=== PATIENT | male | born 1940 | race Caucasian/White ===

== ENCOUNTER 2023-06-18 09:19 | Outpatient (AMB) | payer MEDICARE, SELFPAY ==
--- NOTE | 2023-06-18 09:22 | A.OFFVIS_ITS ---
Vital Signs 06/18/23 09:29 Height 5 ft 11 in Weight 192 lb BMI 26.8 BP 152/88 H Blood Pressure Location Rt brachial Position Sitting Respiration 16 Pulse 81 Pulse Source Pulse Oximeter Pulse Oximetry (%) 99 Oxygen Delivery Method Room Air Intake Visit Reasons: ENP-Muscle Weakness - Confirmed Intake Note: Pt presents to the office for new pt evaluation for muscle weakness. Pt reports lower extremities are weak, right more than the left for the last 3-4 years. He was diagnosed with Parkinson's a year ago. He c/o tremors of upper extremities, altered balance whe changing positions, unsteady gait. 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 Allergies allopurinol Allergy (Mild, Verified 06/18/23 09:35) Rash ampicillin Allergy (Mild, Verified 06/18/23 09:35) Rash cefuroxime Allergy (Mild, Verified 06/18/23 09:35) Rash lisinopril Allergy (Mild, Verified 06/18/23 09:35) Rash valsartan [From Diovan] Allergy (Mild, Verified 06/18/23 09:35) Rash smz/TMP Allergy (Mild, Uncoded 06/18/23 09:35) Rash Medication List - Last Reconciled 06/18/23 by Omayra Lewis MD apixaban (Eliquis) 5 mg PO BID atorvastatin 40 mg PO DAILY calcium carb and citrat-mag ox 200 mg calcium- 50 mg tabs PO carbidopa-levodopa 25-100 mg 1 tab PO TID cholecalciferol (vitamin D3) 25 mcg PO DAILY docosahexaenoic acid-epa 120-180 mg (Fish Oil) 1 cap PO DAILY furosemide 40 mg PO DAILY hydralazine 10 mg PO TID levothyroxine 75 mcg PO DAILY metoprolol succinate ER 25 mg PO DAILY vitamin B complex 1 cap PO DAILY HPI Comments Details: 83y/o right handed male comes for evaluation of possible parkinsons. He started noticing tremors in his right hand about 10 years ago. It was intermittent and was with action. It was diagnosed as essential tremors.He later noticed difficulty with fine motor coordination and slowness in activities. In the past year he reports that his voice is softer , has drooling, handwriting is smaller, trouble using utensils , difficulty with dressing , showering, difficulty changing positions at night,slower gait , unsteady , had falls, poor balance when he changes position . He had 2 episodes of hallucinations - at night mild. He has sleep talking . He is on CPAP for COURTNEY. Cognition- short term memory difficulties and word finding difficulties. No h/o head injury, used round up in the past. Bowel movements are stable . He was seen by Dr. Anderson and was trialed on sinemet with no response. [facility] Medical History (Updated 06/18/23 @ 10:27 by Omayra Lewis MD) Parkinson'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 dyskinesia COURTNEY on CPAP Atrial fibrillation Mantle cell lymphoma Back pain BPH (benign prostatic hyperplasia) HTN (hypertension) Hypothyroidism Parotid tumor Surgical History S/P rotator cuff repair H/O thyroidectomy S/P Mohs surgery for basal cell carcinoma H/O inguinal hernia repair H/O prostate biopsy S/P TURP Social History Household Members: Spouse Caregiver staying overnight: Yes Housing: House Alcohol intake: never Patient Tobacco Use Status: Never used Tobacco Physical Exam Vital Signs: Last Vital Signs Pulse 81 06/18/23 09:29 Resp 16 06/18/23 09:29 BP 152/88 H 06/18/23 09:29 Pulse Ox 99 06/18/23 09:29 Oxygen Delivery Method Room Air 06/18/23 09:29 BMI result Body Mass Index 26.8 Const General: cooperative, healthy appearing and no acute distress Nutritional Appearance: average body habitus Orientation/consciousness: patient oriented x3 HEENT Head: Yes normal to inspection Neck Other: mild antecollis and restricted range of motion Neuro Other: Moderately decreased blink and facial expression - mild asymmetry - decreased movement on the right No tremors Voice-severe hypophonia and dysprosody Fine Finger movements - severely decreased christine R>L Aletranting hand movements - decreased christine Hand movements - decreased christine Foot taps- decreased christine 2+ cog wheel rigidity right UE gait - stooped, moderate slowness and decreased arm swing R>L General: patient oriented x3 and no focal motor deficits Cranial nerves: Yes CN's II-XII intact bilaterally, Yes Bilaterally intact EOM present, Yes Normal facial strength present and Yes Midline tongue present Cognition (Neuro): normal cognition and abnormal cognition (repeats questions frequently) Motor exam (neuro): 5/5 motor strength present throughout Deep tendon reflexes (DTR's): Right triceps reflex intensity grade: 1+, Left triceps reflex intensity grade: 1+, Rt Biceps (C5, C6): 1+, Left biceps reflex intensity grade: 1+, Right brachioradialis reflex intensity grade: 1+, Left brachioradialis reflex intensity grade: 1+, Right patellar reflex intensity grade: 1+ and Left patellar reflex intensity grade: 1+ Coordination: [id number] test normal Assessment & Plan Assessment & Plan (1) Parkinson'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 dyskinesia: Comment: Bradykinesia ,Right cog wheel rigidty hypophonia Code(s): G20.A1 - Parkinson'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 dyskinesia, without mention of fluctuations Category: Medical Plan His symptoms are c/w parkinsons disease - Akinetic rigid type. I will retrial him on carbidopa /levodopa 25/100 1/2 tab tid and titrate to 1 tab tid PT for gait and balance Info on APDA given Side effects discussed in detail MRI brain Will consider ANGELINE scan Orders: Orders PT Evaluation and Treatment Today G20.A1 - Parkinson'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 dyskinesia, without mention of fluctuations MR head/brain wo con Today G20.A1 - Parkinson'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 dyskinesia, without mention of fluctuations Medications: New carbidopa-levodopa 25-100 mg 1 tab PO TID 90 tabs 6RF Coding Level of Care Code New Pt Level 4 (74124) Complex EM visit Add On G2211 Diagnoses Parkinson'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 dyskinesia G20.A1
[2023-06-18 09:29] VITALS: BP 152/88; PULSE 81; RESP 16; O2SAT 99; BMI 26.8
== END 2023-06-18 10:36 | disposition home or self-care (01) ==
PROVIDERS: PCP Family Medicine; Visit Provider Psychiatry & Neurology Neurology
DX: G20.A1 Parkinson'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 dyskinesia, without mention of fluctuations (principal)
CPT/HCPCS: 99204; G2211

== ENCOUNTER → 2023-06-18 09:19 | Outpatient (BNVA) | payer MEDICARE, SELFPAY | PROVIDERS: PCP Family Medicine; Visit Provider Psychiatry & Neurology Neurology | DX: G20.A1 Parkinson'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 dyskinesia, without mention of fluctuations (principal) | CPT/HCPCS: 99202 ==

== ENCOUNTER 2023-07-21 10:02 | Outpatient (REF) | payer MEDICARE, SELFPAY ==
--- NOTE | ~2023-07-21 | MR_ITS ---
EXAMINATION: MR BRAIN WITHOUT CONTRAST CLINICAL INFORMATION: Tremors, off balance. Parkinson'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 dyskinesia. History of mantle cell lymphoma, parotid acinic cell carcinoma. History of stroke approximately 3-5 years prior. COMPARISON: None available. TECHNIQUE: MRI of the brain was obtained using routine sequences without contrast. Standard sequences were utilized on a 1.5 Loli GE magnet. FINDINGS: There is no diffusion restriction. There is no intracranial hemorrhage, acute infarction, mass effect, or edema. No extra-axial collection. Old linear infarct in the posterior right putamen, extending cephalad into the molina radiata with associated gliosis. Ventricles, sulci, and cisterns are diffusely somewhat prominent, reflective of age advanced cerebral and cerebellar volume loss. No shift of midline. Moderate thinning of the corpus callosum. Mild hemosiderin staining noted abutting the old lacunar type infarct right posterior putamen. There are a few punctate foci of hemosiderin deposition/blooming in the bilateral frontal lobes, some within the subarachnoid space and subtle cortically based. This may reflect old microhemorrhages from old trauma, versus old treated tiny metastatic foci. There are numerous bilateral scattered foci of punctate and minimally confluent white matter T2 hyperintensity in the supratentorial periventricular, subcortical, and hemispheric deep white matter. No distribution or morphology specific to demyelinating disease. Midline structures appear normally formed. 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 Cerebellar tonsils are appropriately located. Posterior fossa structures demonstrate an old lacunar type infarct in the right cerebellar hemisphere. Major flow voids are preserved within the skull base. 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 The globes are aphakic. Orbital contents appear normal. No significant paranasal sinus disease is noted. There is fluid signal in the right mastoid air cells, with small amount of involvement of the right middle ear cavity. A small amount of fluid is also noted in the right petrous apex. Extracranial soft tissues demonstrate no abnormalities. No suspicious bone marrow changes are evident. Atlantoaxial demonstrates degenerative changes with mild pannus formation, mildly narrowing the craniocervical junction. MR/MR head/brain wo con IMPRESSION: 1. No acute intracranial hemorrhage, acute infarction, mass effect, or edema. 2. Old vertically oriented infarct in the right posterior putamen extending cephalad into the mid molina radiata. 3. Old lacunar type infarct right cerebellar hemisphere. 4. There are mild to moderate changes of small vessel ischemia. No distribution or morphology specific to demyelinating disease. 5. Moderate prominence of the ventricles, sulci, and cisterns, reflecting mild age advanced cerebral and cerebellar volume loss. 6. Right mastoid effusion, with a small amount of fluid extending into the right middle ear cavity. Fluid within the right petrous apex. 7. Scattered foci of hemosiderin deposition in the bilateral frontal subarachnoid spaces and cortex. This is an unusual distribution for vascular disease, consider prior trauma or prior treated metastases. None are associated with any edema. If there is concern for active metastatic disease, recommend contrast enhanced study. 8. See the body of the report for additional ancillary findings.
== END 2023-07-21 10:03 | disposition home or self-care (01) ==
LOC: HO.MRI 10:02
PROVIDERS: PCP Family Medicine; Visit Provider Psychiatry & Neurology Neurology
DX: G20.A1 Parkinson'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 dyskinesia, without mention of fluctuations (principal)
CPT/HCPCS: 70551

== ENCOUNTER → 2023-07-21 10:07 | Outpatient (BNV) | payer MEDICARE, SELFPAY | PROVIDERS: PCP Family Medicine; Visit Provider Radiology Diagnostic Radiology | DX: G20.A1 Parkinson'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 dyskinesia, without mention of fluctuations (principal) | CPT/HCPCS: 70551 ==

== ENCOUNTER 2023-10-13 12:14 | Outpatient (AMB) | payer MEDICARE, SELFPAY ==
--- NOTE | 2023-10-13 12:19 | MHC.OFFVIS ---
Vital Signs 10/13/23 12:20 Height 5 ft 11 in Weight 187 lb 8 oz BMI 26.1 BP 122/80 Blood Pressure Location Rt brachial Position Sitting Respiration 16 Pulse 76 Pulse Source Palpation Intake Visit Reasons: Muscle Weakness Intake Note: Pt presents tot he office for a 4 month follow up for Parkinsonism. 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 Allergies allopurinol Allergy (Mild, Verified 10/13/23 12:20) Rash ampicillin Allergy (Mild, Verified 10/13/23 12:20) Rash cefuroxime Allergy (Mild, Verified 10/13/23 12:20) Rash lisinopril Allergy (Mild, Verified 10/13/23 12:20) Rash valsartan [From Diovan] Allergy (Mild, Verified 10/13/23 12:20) Rash smz/TMP Allergy (Mild, Uncoded 10/13/23 12:20) Rash Medication List - Last Reconciled 10/13/23 by Omayra Lewis MD apixaban (Eliquis) 5 mg PO BID atorvastatin 40 mg PO DAILY calcium carb and citrat-mag ox 200 mg calcium- 50 mg tabs PO carbidopa-levodopa 25-100 mg 1.5 tabs PO TID cholecalciferol (vitamin D3) 25 mcg PO DAILY docosahexaenoic acid-epa 120-180 mg (Fish Oil) 1 cap PO DAILY furosemide 40 mg PO DAILY hydralazine 10 mg PO TID levothyroxine 75 mcg PO DAILY metoprolol succinate ER 25 mg PO DAILY vitamin B complex 1 cap PO DAILY HPI Comments Details: 83y/o right handed male comes for follow up of parkinsons.he is on sinemet 25/100 tid an dhas noticed a mild difference in his balance.No falls since his last visit.No side effects . Previous history-He started noticing tremors in his right hand about 10 years ago. It was intermittent and was with action. It was diagnosed as essential tremors.He later noticed difficulty with fine motor coordination and slowness in activities. In the past year he reports that his voice is softer , has drooling, handwriting is smaller, trouble using utensils , difficulty with dressing , showering, difficulty changing positions at night,slower gait , unsteady , had falls, poor balance when he changes position . He had 2 episodes of hallucinations - at night mild. He has sleep talking . He is on CPAP for COURTNEY. Cognition- short term memory difficulties and word finding difficulties. No h/o head injury, used round up in the past. Bowel movements are stable . He was seen by Dr. Anderson and was trialed on sinemet with no response. [facility] Medical History (Updated 10/13/23 @ 12:26 by Nikkie Cruz CMA) Malignant melanoma Basal cell carcinoma Parkinson'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 dyskinesia COURTNEY on CPAP Atrial fibrillation Mantle cell lymphoma Back pain BPH (benign prostatic hyperplasia) HTN (hypertension) Hypothyroidism Parotid tumor Surgical History S/P rotator cuff repair H/O thyroidectomy S/P Mohs surgery for basal cell carcinoma H/O inguinal hernia repair H/O prostate biopsy S/P TURP Social History Household Members: Spouse Caregiver staying overnight: Yes Housing: House Alcohol intake: never Patient Tobacco Use Status: Never used Tobacco Physical Exam Vital Signs: Last Vital Signs Pulse 76 10/13/23 12:20 Resp 16 10/13/23 12:20 BP 122/80 10/13/23 12:20 BMI result Body Mass Index 26.1 Const General: cooperative, healthy appearing and no acute distress Nutritional Appearance: average body habitus Orientation/consciousness: patient oriented x3 HEENT Head: Yes normal to inspection Neck Other: mild antecollis and restricted range of motion Neuro Other: Moderately decreased blink and facial expression - mild asymmetry - decreased movement on the right No tremors Voice-mild moderate hypophonia and dysprosody Fine Finger movements -mildly decreased christine R>L Alternating hand movements - decreased christine Hand movements - decreased christine Foot taps- decreased christine 2+ cog wheel rigidity right UE gait - with walker - good stride mild slowness General: patient oriented x3 and no focal motor deficits Cranial nerves: Yes CN's II-XII intact bilaterally, Yes Bilaterally intact EOM present, Yes Normal facial strength present and Yes Midline tongue present Cognition (Neuro): normal cognition and abnormal cognition (repeats questions frequently) Motor exam (neuro): 5/5 motor strength present throughout Coordination: [id number] test normal Results Reviewed Results Reviewed: MRI Brain- 08/02 No acute intracranial hemorrhage, acute infarction, mass effect, or edema. 2. Old vertically oriented infarct in the right posterior putamen extending cephalad into the mid molina radiata. 3. Old lacunar type infarct right cerebellar hemisphere. 4. There are mild to moderate changes of small vessel ischemia. No distribution or morphology specific to demyelinating disease. 5. Moderate prominence of the ventricles, sulci, and cisterns, reflecting mild age advanced cerebral and cerebellar volume loss. 6. Right mastoid effusion, with a small amount of fluid extending into the right middle ear cavity. Fluid within the right petrous apex. 7. Scattered foci of hemosiderin deposition in the bilateral frontal subarachnoid spaces and cortex. This is an unusual distribution for vascular disease, consider prior trauma or prior treated metastases. None are associated with any edema. If there is concern for active metastatic disease, recommend contrast enhanced study. 8. See the body of the report for additional ancillary findings. Assessment & Plan Assessment & Plan (1) Parkinson'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 dyskinesia: Comment: Bradykinesia ,Right cog wheel rigidty hypophonia Code(s): G20.A1 - Parkinson'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 dyskinesia, without mention of fluctuations Category: Medical Plan His symptoms are c/w parkinsons disease - Akinetic rigid type. Increase carbidopa /levodopa 25/100 1 1/2 tab tid PT for gait and balance - starts tomorrow Info on APDA given Side effects discussed in detail MRI brain results discussed -will consider repeat in 1year. Will consider ANGELINE scan Medications: Changed From carbidopa-levodopa 25-100 mg 1 tab PO TID 90 tabs 6RF To carbidopa-levodopa 25-100 mg 1.5 tabs PO TID 450 tabs 6RF Coding Level of Care Code Est Pt Level 4 (96595) Complex EM visit Add On G2211 Diagnoses Parkinson'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 dyskinesia G20.A1
[2023-10-13 12:20] VITALS: BP 122/80; PULSE 76; RESP 16; BMI 26.1
== END 2023-10-13 13:05 | disposition home or self-care (01) ==
PROVIDERS: PCP Family Medicine; Visit Provider Psychiatry & Neurology Neurology
DX: G20.A1 Parkinson'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 dyskinesia, without mention of fluctuations (principal)
CPT/HCPCS: 99214; G2211

== ENCOUNTER → 2023-10-13 12:14 | Outpatient (BNVA) | payer MEDICARE, SELFPAY | PROVIDERS: PCP Family Medicine; Visit Provider Psychiatry & Neurology Neurology | DX: G20.A1 Parkinson'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 dyskinesia, without mention of fluctuations (principal) | CPT/HCPCS: 99212 ==

== ENCOUNTER 2024-04-27 15:16 | Outpatient (AMB) | payer MEDICARE, SELFPAY ==
[2024-04-27 15:19] VITALS: BP 128/88; PULSE 72; O2SAT 99; BMI 26.1
--- NOTE | 2024-04-27 15:19 | A.OFFVIS_ITS ---
Vital Signs 04/27/24 15:19 Height 5 ft 11 in Weight 187 lb BMI 26.1 BP 128/88 Blood Pressure Location Rt brachial Position Sitting Pulse 72 Pulse Source Pulse Oximeter Pulse Oximetry (%) 99 Oxygen Delivery Method Room Air Intake Visit Reasons: Muscle Weakness Intake Note: patient following up on parkinson and COURTNEY compliance report scanned 04/19/24 Allergies allopurinol Allergy (Mild, Verified 04/27/24 15:21) Rash ampicillin Allergy (Mild, Verified 04/27/24 15:21) Rash cefuroxime Allergy (Mild, Verified 04/27/24 15:21) Rash lisinopril Allergy (Mild, Verified 04/27/24 15:21) Rash valsartan [From Diovan] Allergy (Mild, Verified 04/27/24 15:21) Rash smz/TMP Allergy (Mild, Uncoded 04/27/24 15:21) Rash Medication List - Last Reconciled 04/27/24 by Omayra Lewis MD apixaban (Eliquis) 5 mg PO BID atorvastatin 40 mg PO DAILY calcium carb and citrat-mag ox 200 mg calcium- 50 mg tabs PO carbidopa-levodopa 25-100 mg 2 tabs PO TID cholecalciferol (vitamin D3) 25 mcg PO DAILY docosahexaenoic acid-epa 120-180 mg (Fish Oil) 1 cap PO DAILY furosemide 40 mg PO DAILY hydralazine 10 mg PO TID levothyroxine 75 mcg PO DAILY metoprolol succinate ER 25 mg PO DAILY mirabegron ER (Myrbetriq) 50 mg PO DAILY vitamin B complex 1 cap PO DAILY HPI Comments Details: 83y/o right handed male comes for follow up of parkinsons.he is on sinemet 25/100 1 1/2 tid and has noticed a mild difference in his balance.He had 1 fall- 2 mths ago - wet floor .No side effects .He did PT still cabral son and off balance issues especially when turning or changing head positions. Bowel movements-on and off constipation Mybetriq was started by urology He reports one episode of waking up from a nap- confused.He use dto have active dreams - he still talks in sleep but less than before. Previous history-He started noticing tremors in his right hand about 10 years ago. It was intermittent and was with action. It was diagnosed as essential tremors.He later noticed difficulty with fine motor coordination and slowness in activities. In the past year he reports that his voice is softer , has drooling, handwriting is smaller, trouble using utensils , difficulty with dressing , showering, difficulty changing positions at night,slower gait , unsteady , had falls, poor balance when he changes position . He had 2 episodes of hallucinations - at night mild. He has sleep talking . He is on CPAP for COURTNEY. Cognition- short term memory difficulties and word finding difficulties. No h/o head injury, used round up in the past. Bowel movements are stable . He was seen by Dr. Anderson and was trialed on sinemet with no response. [facility] Medical History Malignant melanoma Basal cell carcinoma Parkinson'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 dyskinesia COURTNEY on CPAP Atrial fibrillation Mantle cell lymphoma Back pain BPH (benign prostatic hyperplasia) HTN (hypertension) Hypothyroidism Parotid tumor Surgical History S/P rotator cuff repair H/O thyroidectomy S/P Mohs surgery for basal cell carcinoma H/O inguinal hernia repair H/O prostate biopsy S/P TURP Social History Household Members: Spouse Caregiver staying overnight: Yes Housing: House Alcohol intake: never Patient Tobacco Use Status: Never used Tobacco Physical Exam Vital Signs: Last Vital Signs Pulse 72 04/27/24 15:19 BP 128/88 04/27/24 15:19 Pulse Ox 99 04/27/24 15:19 Oxygen Delivery Method Room Air 04/27/24 15:19 BMI result Body Mass Index 26.1 Const General: cooperative, healthy appearing and no acute distress Nutritional Appearance: average body habitus Orientation/consciousness: patient oriented x3 HEENT Head: Yes normal to inspection Neck Other: mild antecollis and restricted range of motion Neuro Other: Mild decreased blink and facial expression - mild asymmetry - decreased movement on the right No tremors Voice-mild moderate hypophonia and dysprosody Fine Finger movements -mildly decreased christine R>L Alternating hand movements - decreased christine Hand movements - decreased christine Foot taps- decreased christine 1+ cog wheel rigidity right UE gait - good stride mild slowness General: patient oriented x3 and no focal motor deficits Cranial nerves: Yes CN's II-XII intact bilaterally, Yes Bilaterally intact EOM present, Yes Normal facial strength present and Yes Midline tongue present Cognition (Neuro): normal cognition and abnormal cognition (repeats questions frequently) Motor exam (neuro): 5/5 motor strength present throughout Coordination: [id number] test normal Assessment & Plan Assessment & Plan (1) Parkinson'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 dyskinesia: Comment: Bradykinesia ,Right cog wheel rigidty hypophonia Code(s): G20.A1 - Parkinson'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 dyskinesia, without mention of fluctuations Category: Medical Plan Increase carbidopa /levodopa 25/100 2 tab tid PT for gait and balance - continue exercise Info on APDA given Side effects discussed in detail MRI brain results discussed -will consider repeat in 1year. 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
--- OUTSIDE RECORDS SUMMARY | 2024-04-27 17:18 | XMS_ITS | Data Portability ---
Author Organization [facility], [place] Address [address] [place] [id number] Care Team Providers Care Chainer Name Role Phone RUBENS NAILS Primary Care Provider RUBENS NAILS Referring Provider [phone] JE NOVOA OTHER ALYSSA MADDOX Primary Care Provider [facility] OTHER [phone] Assessment Encounter Date Assessment Date Assessment LastModified by Organization Details LastModified Time 01/10/2021 01/10/2021 IMPRESSION: ? C oncern for myelopathy causing feeling of weakness standing from sitting position ? D rooling, lightheadedness episodes upon standing up or while standing. ? T iredness context atrial fibrillation and sleep apnea. 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 --Heterogeneous marrow signal in thoracic spine with multiple hemangiomas as well as multiple small T1 and T2 hypointense foci of indeterminate nature. This may reflect intermixed red and yellow marrow, but marrow replacing process is not excluded. Clinical correlation with any history of malignancy and consideration of bone scan if clinically indicated is recommended. --1.7 cm left adrenal nodule and correlation with prior imaging or follow-up adrenal CT. Cervical spine MRI without contrast December 11, 2020 per dictation [facility] neuroradiology Dr. Kera Burton: The cervical cord is normal. There is no significant central or lateral neuroforaminal stenosis. There is at most mild central canal stenosis (C4-5) There is at most mild lateralizing foraminal stenosis (C3-4 left; C4-5 left; C6-7 left; C7-T1 left) Cervical myelopathy is not seen as potential etiology for weakness standing from sitting. .................. .................. ........ Myelopathy is not found as explanation for his presenting symptoms of weakness standing from a sitting position in the context of upper motor neuron signs including right-sided knee spastic catch, right sided crossed adductors and extensor Babinski response. .................. .................. ...... BONE MARROW ABNORMALITY We discussed that radiology cannot exclude a marrow replacement process. 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 I say that I cannot say whether the abnormality seen on MRI is consistent with this picture or whether it heightens the chance that he has come out of remission. I would want hematology/oncolog y to weigh in. He agrees to contact them as well as contacting primary care. I will make sure my note gets to hematology oncology. .................. .................. ..... PARKINSONISM I doubt a brain related acute abnormality. If the right knee abnormal tone is not spasticity but paratonia or subtle rigidity, this could be an atypical parkinsonian issue as Babinski response and heightened reflexes are consistent with (but nonspecific) with parkinsonism. He has also had drooling. To review, other mild parkinsonian signs that have emerged November 2020 versus January 2020 have included Finger tapping that is moderately small with mild dysrhythmic character. His gait is a little slower. These signs and symptoms reflect parkinsonism but not Parkinson's disease in particular. Medications exist for Parkinson's disease. These medications works suboptimally if at all for parkinsonism that is not from Parkinson's disease. We discussed this. He is noncommittal about considering any such medications. I suggest that we hold off on thinking about this until the issue with his bone marrow abnormality is sufficiently addressed. Both he and his agree with this. .................. .................. ....... Tiredness is nonspecific. It may occur with parkinsonism. There is no specific treatment when it occurs with parkinsonism. They mentioned that sleep medicine say that the CPAP is working well and they have no other ideas about why he is tired. I did not discuss whether cardiology felt there was any cardiac issue that might be causing tiredness. I defer to primary care or cardiology on this. Note is again made of bilateral reduction of vibration sensation to tuning fork at big toes and ankles. I continue to defer to primary care for any monitoring of B12 deficiency. PLAN Marilu Yin January 10, 2021 Followup as needed as detailed above? i n particular if you wish to concentrate on further addressing parkinsonism, although likely not Parkinson's disease, that might relate to many of your symptoms discussed in November 2020 ANNA Adkins Hamatology/Oncolog y mrossen Not available 01/10/2021 15:34:29 01/07/2022 01/07/2022 IMPRESSION: --Slowly worsening gait imbalance, now with stumbling although not falling -- Continued lightheadedness episodes, starting with standing up or walking, including one with diagnosis of dehydration at emergency room in summer 2021 --Patient report of rectal cold] stroke seen on head CT during presentation summer 2021 with significant lightheadedness and diagnosis of dehydration COntext 2020 presentation: ? C oncern for myelopathy causing feeling of weakness standing from sitting position ? D rooling, lightheadedness episodes upon standing up or while standing. 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 T iredness context atrial fibrillation and sleep apnea. --Benign essential familial tremor explaining right hand action tremor --MRI thoracic and cervical spine without contrast, both December 2020, without any concerning cord or central compressive abnormality and with at most mild lateral foraminal stenosis GAIT IMBALANCE Currently physical therapy is indicated. They are on board and I will make the referral. OLD STROKE He should be on secondary stroke prophylaxis. Anticoagulation currently with Eliquis is ideal. There should also be high intensity statin. Atorvastatin or simvastatin 40 mg is the standard direction to go. If there is any concern on cognitive side effects, high intensity rosuvastatin could be used instead.I defer to primary care on this direction and discussed with patient to follow-up with primary care to discuss this further. .................. .................. ..... PARKINSONISM This could be an atypical parkinsonian issue as Babinski response and heightened reflexes are consistent with (but nonspecific) with parkinsonism. He has also had drooling. To review, other mild parkinsonian signs that have emerged November 2020 versus January 2020 have included Finger tapping that is moderately small with mild dysrhythmic character. His gait is a little slower. These signs and symptoms reflect parkinsonism but not Parkinson's disease in particular. January 2021 discussion: Medications exist for Parkinson's disease. These medications works suboptimally if at all for parkinsonism that is not from Parkinson's disease. We discussed this. He is noncommittal about considering any such medications. I suggest that we hold off on thinking about this until the issue with his bone marrow abnormality is sufficiently addressed. Both he and his agree with this. Note is again made of bilateral reduction of vibration sensation to tuning fork at big toes and ankles. I continue to defer to primary care for any monitoring of B12 deficiency. PLAN Marilu CerdaLyndsay Yin January 07, 2022 Physical therapy for Slowly worsening imbalance, now with stumbling although no falling, separate from lightheadedness that also affects balance, mild nonspecific parkinsonism, with hip flexor weakness A referral has been sent to this physical therapy office. However, you have to make an initial phone call, to the number below, to set up the initial appointment. [facility] [address], [place] Follow-up with your primary care provider at your earliest convenience to discuss starting a high intensity statin medication? which is standard of care if you have ever had a stroke before, even a silent stroke, which is what you have apparently had seen on imaging this summer at [facility] emergency room. Follow-up 3 months ANNA Adkins Hamatology/Oncolog y zafar Not available 01/07/2022 12:59:17 04/03/2022 04/03/2022 IMPRESSION: --Slowly worsening gait imbalance, now with stumbling although not falling -- Continued lightheadedness episodes, starting with standing up or walking, including one with diagnosis of dehydration at emergency room in summer 2021 --Patient report of rectal cold] stroke seen on head CT during presentation summer 2021 with significant lightheadedness and diagnosis of dehydration context 2020 presentation: ? C oncern for myelopathy causing feeling of weakness standing from sitting position ? D rooling, lightheadedness episodes upon standing up or while standing. 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 T iredness context atrial fibrillation and sleep apnea. 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 OLD STROKE He should be on secondary stroke prophylaxis. Anticoagulation currently with Eliquis is ideal. There should also be high intensity statin. Atorvastatin or simvastatin 40 mg is the standard direction to go. If there is any concern on cognitive side effects, high intensity rosuvastatin could be used instead.I defer to primary care on this direction and discussed with patient to follow-up with primary care to discuss this further. Today the patient mentions that he has started the statin, atorvastatin 40 mg daily. .................. .................. ..... PARKINSONISM This could be an atypical parkinsonian issue as Babinski response and heightened reflexes are consistent with (but nonspecific) with parkinsonism. He has also had drooling. To review, other mild parkinsonian signs that have emerged November 2020 versus January 2020 have included Finger tapping that is moderately small with mild dysrhythmic character. His gait is a little slower. These signs and symptoms reflect parkinsonism but not Parkinson's disease in particular. January 2021 discussion: Medications exist for Parkinson's disease. These medications works suboptimally if at all for parkinsonism that is not from Parkinson's disease. We discussed this. He is noncommittal about considering any such medications. I suggest that we hold off on thinking about this until the issue with his bone marrow abnormality is sufficiently addressed. Both he and his agree with this. December 2021: Note is again made of bilateral reduction of vibration sensation to tuning fork at big toes and ankles. I continue to defer to primary care for any monitoring of B12 deficiency. PLAN Marilu Yin April 03, 2022 CONTINUE Physical therapy for Slowly worsening imbalance, now with stumbling although no falling, separate from lightheadedness that also affects balance, mild nonspecific parkinsonism, with hip flexor weakness They are agreeable with Follow-up as needed ANNA Adkins Hematology/Oncolog y mrossen Not available 04/03/2022 11:04:22 10/29/2022 10/29/2022 IMPRESSION: --Slowly worsening gait imbalance, now with stumbling although not falling -- Continued lightheadedness episodes, starting with standing up or walking, including one with diagnosis of dehydration at emergency room in summer 2021 --Patient report of old stroke seen on head CT during presentation summer 2021 with significant lightheadedness and diagnosis of dehydration context 2020 presentation: ? C oncern for myelopathy causing feeling of weakness standing from sitting position ? D rooling, lightheadedness episodes upon standing up or while standing. 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 T iredness context atrial fibrillation and sleep apnea. --Benign essential familial tremor explaining right hand action tremor --MRI thoracic and cervical spine without contrast, both December 2020, without any concerning cord or central compressive abnormality and with at most mild lateral foraminal stenosis GAIT IMBALANCE I ask if he is ready to move toward a cane and he is. He has worked well with his physical therapist and has been doing the home exercises since stopping physical therapy. He already has a cane. He is happy to go back to that physical therapist and work on training using a cane. His would also like them to work on him getting up from the floor and I say this is right in the wheel house of a physical therapist. 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 I ask if he has changed his mind about driving carbidopa/levodopa , which is less likely to help for him then for someone with Parkinson's disease. He has changed his mind and he would like to try a dose, cautiously. We discussed possible side effects and decided on a cautious titration as detailed below. I will ask his to learn the medications in his medication organizer and to monitor medication administration from now on as medication mistakes can be a sign of worsening memory and we do not want that to be a situation for our patient. This is especially true when we are changing to a new medication regimen. .................. .................. ..... PARKINSONISM This could be an atypical parkinsonian issue as Babinski response and heightened reflexes are consistent with (but nonspecific) with parkinsonism. He has also had drooling. To review, other mild parkinsonian signs that have emerged November 2020 versus January 2020 have included Finger tapping that is moderately small with mild dysrhythmic character. His gait is a little slower. These signs and symptoms reflect parkinsonism but not Parkinson's disease in particular. January 2021 discussion: Medications exist for Parkinson's disease. These medications works suboptimally if at all for parkinsonism that is not from Parkinson's disease. We discussed this. He is noncommittal about considering any such medications. I suggest that we hold off on thinking about this until the issue with his bone marrow abnormality is sufficiently addressed. Both he and his agree with this. December 2021: Note is again made of bilateral reduction of vibration sensation to tuning fork at big toes and ankles. I continue to defer to primary care for any monitoring of B12 deficiency. PLAN Marilu Yin October 29, 2022 Carbidopa/levodopa 25/100 tablets: 1/2 tablet every morning after breakfast, 1 week, 1 tablet every morning after breakfast after Side effects might include abdominal discomfort, diarrhea, worsened dizziness and rarely hallucination or confusion. Please return to physical therapy for more training with using a cane and for help with learning how to get up from the floor. worsening imbalance, now with first fall 09/2022. There has been history of hip flexor weakness. 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 C oncern for myelopathy causing feeling of weakness standing from sitting position ? D rooling, lightheadedness episodes upon standing up or while standing. 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 T iredness context atrial fibrillation and sleep apnea. --Benign essential familial tremor explaining right hand action tremor --MRI thoracic and cervical spine without contrast, both December 2020, without any concerning cord or central compressive abnormality and with at most mild lateral foraminal stenosis ? J anuary 2023 three more falls; none yet while using the new walker. GAIT IMBALANCE Dyscoordination maneuvering a walker may be part of his parkinsonism. I asked his son, who is at the physical therapy session and knows the recommendation for using the walker in tight spaces, to work with his father today on using the walker at home in a tight space. They can report to physical therapy how that went. If the patient cannot do it, the other options are wheelchair or grab bars. I would get Occupational Therapy to assess for grab bars. The patient says that he is not opposed to a walker if that is what is left. They will discuss this to with physical therapy if the patient is not able to maneuver in the tight spaces? a nd the problem is not that the walker is to be so that a smaller walker would help. He Is not interested in further increase in the carbidopa levodopa after we again discussed that with his type of Parkinson's symptomatology, the chances of benefit are not that high. We will stop the carbidopa/levodopa . The son wonders if he can go up (as I described to and then 2 tablets in the morning) if the patient changes his mind after he gets home. I say that is certainly possible as long as they give me/our front office to call to say this new decision has happened. FORGTFULLNESS Both patient and his son say (February 24, 2022) that he and the patient's take medicines together at each medication administration, morning and evening and the watches to make sure that her is doing it correctly. .................. .................. ..... PARKINSONISM This could be an atypical parkinsonian issue as Babinski response and heightened reflexes are consistent with (but nonspecific) with parkinsonism. He has also had drooling. To review, other mild parkinsonian signs that have emerged November 2020 versus January 2020 have included Finger tapping that is moderately small with mild dysrhythmic character. His gait is a little slower. These signs and symptoms reflect parkinsonism but not Parkinson's disease in particular. January 2021 discussion: Medications exist for Parkinson's disease. These medications works suboptimally if at all for parkinsonism that is not from Parkinson's disease. We discussed this. He is noncommittal about considering any such medications. I suggest that we hold off on thinking about this until the issue with his bone marrow abnormality is sufficiently addressed. Both he and his agree with this. December 2021: Note is again made of bilateral reduction of vibration sensation to tuning fork at big toes and ankles. I continue to defer to primary care for any monitoring of B12 deficiency. PLAN Marilu Yin February 24, 2023 STOP Carbidopa/levodopa 25/100 tablets: 1 tablet every morning after breakfast Please continue with physical therapy for gait imbalance Follow-up 6 weeks ANNA Adkins Hematology/Oncolog y zafar Not available 02/24/2023 13:19:25 Plan of Treatment Reminders Order Date Submit Date Provider Last Modified By Organization Details Last Modified Time Details Appointments None recorded. Lab None recorded. Referral neurologic physical therapist referral - Slowly worsening imbalance, now with stumbling although no falling, separate from lightheaded ness that also affects balance, mild nonspecific parkinsonis m, with hip flexor weakness 2021 022 trino 1 [facility], [address] [place] [address], [place], [id number], 3 15:32:50 Procedures None recorded. Surgeries None recorded. Imaging None recorded. Medication Orders carbidopa 25 mg-levodopa 100 mg tablet 2022 023 [id number], [address] [place], [id number], 13:25:02 Patient TargetsNo targets recorded. Patient Instructions Encounter Date Encounter Id Patient Instructions Last Modified By Organization Details Last Modified Time 01/07/2022 [id number] PREVIOUS DISCUSSIONS _ ................... ................... ..... January 10, 2021 discussion: Tiredness is nonspecific. It may occur with parkinsonism. There is no specific treatment when it occurs with parkinsonism. They mentioned that sleep medicine say that the CPAP is working well and they have no other ideas about why he is tired. I did not discuss whether cardiology felt there was any cardiac issue that might be causing tiredness. I defer to primary care or cardiology on this. ................... ................... ...... Cervical myelopathy is not seen as potential etiology for weakness standing from sitting. Myelopathy is not found as explanation for his presenting symptoms of weakness standing from a sitting position in the context of upper motor neuron signs including right-sided knee spastic catch, right sided crossed adductors and extensor Babinski response. ................... ................... .... BONE MARROW ABNORMALITY We discussed that radiology cannot exclude a marrow replacement process. 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 I say that I cannot say whether the abnormality seen on MRI is consistent with this picture or whether it heightens the chance that he has come out of remission. I would want hematology/oncology to weigh in. He agrees to contact them as well as contacting primary care. I will make sure my note gets to hematology oncology. Discussion across issues of diagnoses and management and same day associated chart review and management greater than 50% greater than 40 minutes [email or web address] Not available 01/07/2022 12:58:31 04/03/2022 [id number] PREVIOUS DISCUSSIONS _ ................... ................... ..... January 10, 2021 discussion: Tiredness is nonspecific. It may occur with parkinsonism. There is no specific treatment when it occurs with parkinsonism. They mentioned that sleep medicine say that the CPAP is working well and they have no other ideas about why he is tired. I did not discuss whether cardiology felt there was any cardiac issue that might be causing tiredness. I defer to primary care or cardiology on this. ................... ................... ...... Cervical myelopathy is not seen as potential etiology for weakness standing from sitting. Myelopathy is not found as explanation for his presenting symptoms of weakness standing from a sitting position in the context of upper motor neuron signs including right-sided knee spastic catch, right sided crossed adductors and extensor Babinski response. ................... ................... .... BONE MARROW ABNORMALITY We discussed that radiology cannot exclude a marrow replacement process. 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 I say that I cannot say whether the abnormality seen on MRI is consistent with this picture or whether it heightens the chance that he has come out of remission. I would want hematology/oncology to weigh in. He agrees to contact them as well as contacting primary care. I will make sure my note gets to hematology oncology. Discussion across issues of diagnoses and management and same day associated chart review and management greater than 50% greater than 30 minutes mrossen Not available 04/03/2022 11:04:26 10/29/2022 [id number] PREVIOUS DISCUSSIONS _ >>>>>>>April 03, 2022 OLD STROKE He should be on secondary stroke prophylaxis. Anticoagulation currently with Eliquis is ideal. There should also be high intensity statin. Atorvastatin or simvastatin 40 mg is the standard direction to go. If there is any concern on cognitive side effects, high intensity rosuvastatin could be used instead.I defer to primary care on this direction and discussed with patient to follow-up with primary care to discuss this further. Today the patient mentions that he has started the statin, atorvastatin 40 mg daily. ................... ................... ..... January 10, 2021 discussion: Tiredness is nonspecific. It may occur with parkinsonism. There is no specific treatment when it occurs with parkinsonism. They mentioned that sleep medicine say that the CPAP is working well and they have no other ideas about why he is tired. I did not discuss whether cardiology felt there was any cardiac issue that might be causing tiredness. I defer to primary care or cardiology on this. ................... ................... ...... Cervical myelopathy is not seen as potential etiology for weakness standing from sitting. Myelopathy is not found as explanation for his presenting symptoms of weakness standing from a sitting position in the context of upper motor neuron signs including right-sided knee spastic catch, right sided crossed adductors and extensor Babinski response. ................... ................... .... BONE MARROW ABNORMALITY We discussed that radiology cannot exclude a marrow replacement process. 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 I say that I cannot say whether the abnormality seen on MRI is consistent with this picture or whether it heightens the chance that he has come out of remission. I would want hematology/oncology to weigh in. He agrees to contact them as well as contacting primary care. I will make sure my note gets to hematology oncology. Discussion across issues of diagnoses and management and same day associated chart review and management greater than 50% greater than 40 minutes zafar Not available 10/29/2022 13:23:43 02/24/2023 [id number] PREVIOUS DISCUSSIONS _ >>>>>>>April 03, 2022 OLD STROKE He should be on secondary stroke prophylaxis. Anticoagulation currently with Eliquis is ideal. There should also be high intensity statin. Atorvastatin or simvastatin 40 mg is the standard direction to go. If there is any concern on cognitive side effects, high intensity rosuvastatin could be used instead.I defer to primary care on this direction and discussed with patient to follow-up with primary care to discuss this further. Today the patient mentions that he has started the statin, atorvastatin 40 mg daily. ................... ................... ..... January 10, 2021 discussion: Tiredness is nonspecific. It may occur with parkinsonism. There is no specific treatment when it occurs with parkinsonism. They mentioned that sleep medicine say that the CPAP is working well and they have no other ideas about why he is tired. I did not discuss whether cardiology felt there was any cardiac issue that might be causing tiredness. I defer to primary care or cardiology on this. ................... ................... ...... Cervical myelopathy is not seen as potential etiology for weakness standing from sitting. Myelopathy is not found as explanation for his presenting symptoms of weakness standing from a sitting position in the context of upper motor neuron signs including right-sided knee spastic catch, right sided crossed adductors and extensor Babinski response. ................... ................... .... BONE MARROW ABNORMALITY We discussed that radiology cannot exclude a marrow replacement process. 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 I say that I cannot say whether the abnormality seen on MRI is consistent with this picture or whether it heightens the chance that he has come out of remission. I would want hematology/oncology to weigh in. He agrees to contact them as well as contacting primary care. I will make sure my note gets to hematology oncology. Discussion across issues of diagnoses and management and same day associated chart review and management greater than 50% greater than 40 minutes sarahin Not available 02/24/2023 12:34:05 Reason for Referral Slowly worsening imbalance, now with stumbling although no falling, separate from lightheadedness that also affects balance, mild nonspecific parkinsonism, with hip flexor weakness Referring Physician: Robert Anderson, Neurology, Encounter Date: 01/07/2022 Results Created Date Observation Date Name Description Value Unit Range Abnormal Flag Note LastModifiedBy Organization Detail LastModifiedTime 12/12/19 21 12/11/2020 MRI, cervi stephenie spine , w/o contr ast [facility] Access ion Number : [id number] Patidat susanne Name: Caridad Yin Record Number : [id number] Date of : 1940 Date of Exam: 2020 Referr ing Physic braxton: Marbella Anderson MD Neurol [facility] [address] [address] Exam: MR Cervic al Spine (C-) CPT 58680 Room Descri ption: [place] Siem Verio 3.0T INDICA TION: Concer n for myelop athy for weakne ss in standi ng from sittin g positi on, right- sided knee spasti c catch, or right- sided crosse d adduct ors and extens or Babins ki respon se. Neck pain. TECHNI QUE: Multip lanar, multis equenc e MRI of the cervic al spine was perfor med withou t intrav enous contra st. COMPAR ZEESHAN: None FINDIN GS: Grade 1 anselmo listhe sis of C4 on C5 is noted. Alignm ent is otherw ise preser eflego. Verteb ral body height s are mainta ined. Interv ertebr al discs are diffus daniel desicc ated. There is partia l fusion across the severe ly narrow ed C5-6 disc space. There is also severe loss of disc space at C7-T1 and modera te loss of disc space at C6-7. Scatte red degene rative endpla te change s are noted, most promin ently Modic 2 change s at C7-T1. T1 and T2 hyperi ntense focus in the T3 verteb ral body is compat ible with a arnaud ioma. There is also a ranaud ioma versus focal fatty change in the right aspect of the C6 verteb ral body. No suspic ious marrow signal abnorm ality is seen. The visual ized [employer] teller ior fossa and cervic omedul hal juncti on are normal . Cord signal and contou r is normal throug hout. An oval node measur ing 7 mm in short axis is seen credit [employer] teller ior and latera l to the right thyroi d lobe, not meetin g size criter ia for enlarg ement. The visual ized soft tissue s of the neck are otherw ise unrema rkable . Flow voids are preser elfego in the domina nt cervic al vessel s. Specif ic findin gs by level: C2-C3: No signif icant disc hernia tion, centra l stenos is, or neural forami nal narrow ing. C3-C4: Small centra l protru carolee and mild bilate ral facet hypert rophy, greate r on the left. No signif icant centra l stenos is or right neural forami nal narrow ing. Mild left neural forami nal narrow ing. C4-C5: Mild broad- based disc bulge with small centra l protru carolee along with left greate r than right facet hypert rophy and mild uncove rtebra l spurri ng. Mild centra l stenos is. Mild left and no right neural forami nal narrow ing. C5-C6: Mild broad- based disc osteop hyte comple x and uncove rtebra l spurri ng. No signif icant centra l stenos is or left neural forami nal narrow ing. Minima l right neural forami nal narrow ing. C6-C7: Mild broad- based credit union teller ior disc osteop hyte comple x and bilate ral uncove rtebra l spurri ng. No signif icant centra l stenos is. Mild right and no signif icant left neural forami nal narrow ing. Bilate ral perine ural cysts. C7-T1: Mild broad- based disc osteop hyte comple x with left greate r than right uncove rtebra l spurri ng. No signif icant centra l stenos is or right neural forami nal narrow ing. Mild left neural forami nal narrow ing. IMPRES CAROLEE: Mild degene rative change s of the cervic al spine as detail ed above. No centra l stenos is, cord compre ssion, or cord signal abnorm ality. Electr onical ly Signed By: Willow Burton MD [email or web address] [facility] ([facility]) [address] [facility] [address], [place], [address], 12/20/2020 13:13:21 01/08/20 21 01/06/2021 MRI, thora cic spine , w/o contr ast [facility] Access ion Number : [id number] Novadat skinner Name: Caridad Yin Record Number : [id number] Date of : 1940 Date of Exam: 2020 Referr ing Physic braxton: Marbella Anderson MD Neurol [facility] [address] [address] Exam: MR Thorac ic Spine (C-) CPT 75742 Room Descri ption: [place] Siem Verio 3.0T INDICA TION: Interv ertebr al disc disord er of the thorac ic region with myelop athy. Weakne ss and standi ng from the sittin g positi on, right- sided knee spasti c catch, right- sided crosse d abduct ors and extens or Babins ki respon se. No back pain. TECHNI QUE: Multip lanar, multis equenc e MRI of the thorac ic spine was perfor med withou t intrav enous contra st. COMPAR ZEESHAN: No direct compar zeeshan. Correl ation to MRI cervic al spine 021. FINDIN GS: Verteb ral body height s are preser elfego. Alignm ent is mainta ined. Marrow signal is diffus daniel hetero geneou s. Multil evel degene rative endpla te signal change s are noted, includ ing Modic 2 change s at C7-T1 and Modic 1 change s most promin ent at T6-7 and T7-8. Severa l rounde d T1 and T2 hyperi ntense foci are seen in the marrow , compat ible with benign arnaud iomas, includ ing at T3, T5, T6, T8, and T10. Backgr ound marrow signal is diffus daniel hetero geneou s with small scatte red T1 and T2 hypoin tense foci cardio logy. No corres pondin g STIR hyperi ntense signal and no destru ctive lesion . Interv ertebr al discs are diffus daniel desicc ated and mildly narrow ed. Multil evel tiny credit union teller ior disc bulges are presen t, includ ing at C7-T1, T1-T2, T2-T3, T10-T1 1, and T12-L1 , but there is no signif icant centra l stenos is or neural forami nal narrow ing at any level in the thorac ic spine. Cord signal and contou r is normal throug hout. Partia lly visual ized T2 hyperi ntense lesion in the right kidney measur ing 1.5 cm is statis ticall y likely to reflec t a cyst. A left adrena l nodule measur ing approx imatel y 1.7 x 1.3 cm is indete rminat e. Remain ing visual ized parasp inal soft tissue s are unrema rkable . IMPRES CAROLEE: 1. No cord compre ssion or cord signal abnorm ality in the thorac ic spine to explai n the patien t's sympto ms. 2. Hetero geneou s marrow signal in thorac ic spine, with multip le arnaud iomas as well as multip le small T1 and T2 hypoin tense foci which are indete rminat e. This may reflec t interm ixed red and yellow marrow , but marrow replac ing proces s is not exclud ed; correl ate with any clinic al histor y of malign emanuel and consid er bone scan if clinic ally indica víctor. 3. 1.7 cm left adrena l nodule . Sugges t correl ation with any prior imagin g if availa ble. Otherw ise, recomm end follow -up adrena l CT for charac teriza tion. Electr onical ly Signed By: Willow Burton MD [facility] ([facility]) [address] [place], [address], 01/08/2021 21:51:05 Result Notes None recorded. Procedures Surgical History Date Name Laterality Status Provider Name and Address Organization Details Recorded Time 02/24/2023 DATA REVIEW completed Robert Anderson MD [address] [place] [address] [place], [phone], Formerly [facility] 02/24/2023 12:34:05 10/29/2022 DATA REVIEW completed Robert Anderson MD [address] [place] [address] [place], [phone], Formerly [facility] 10/29/2022 12:47:31 04/03/2022 DATA REVIEW completed Robert Anderson MD [address] [place] [address] [place], [phone], Formerly [facility] 04/03/2022 10:41:52 01/07/2022 DATA REVIEW completed Robert Anderson MD [address] [place] [address] [place], [phone], Formerly [facility] 01/07/2022 12:14:14 Imaging Results Imaging Date Name Status LastModified by Organiz ation Details LastModified Time 12/11/2020 MRI, cervical spine, w/o contrast completed [email or web address] [facility] ([facility]) [address] [place], [address], 12/20/2020 13:13:21 01/06/2021 MRI, thoracic spine, w/o contrast completed [facility] ([facility]) [address] [place], [address], 01/08/2021 21:51:05 Procedure Notes None recorded. Medical Equipment None Reported. Medications Name Sig Start Date Stop Date Status Note LastModified by Organization Details LastModified Time atorvastatin 40 mg tablet active Not Available Not Available Not Available amiodarone 200 mg tablet TAKE 1 TABLET BY MOUTH ONCE DAILY active Not Available Not Available No t Available levothyroxine 75 mcg tablet active Not Available Not Availabl e Not Available ketorolac 0.5 % eye drops INSTILL 1 DROP INTO RIGHT EYE THREE TIMES DAILY FOR 3 WEEKS FOLLOWING SURGERY active Not Available Not Available No t Available levothyroxine 100 mcg tablet active Not Available Not Available Not Available levothyroxine 88 mcg tablet active Not Available Not Availabl e Not Available amlodipine 10 mg tablet active Not Available Not Available No t Available levothyroxine 125 mcg tablet active Not Available Not Available Not Available metoprolol succinate ER 25 mg tablet,extend ed release 24 hr TAKE 1 TABLET BY MOUTH ONCE DAILY FOR 30 DAYS active Not Available Not Available No t Available carbidopa 25 mg-levodopa 100 mg tablet TAKE 1/2 (ONE-HALF) TABLET BY MOUTH IN THE MORNING AFTER BREAKFAST FOR 1 WEEK THEN 1 TABLET IN THE MORNING AFTER BREAKFAST AFTER active Not Available Not Available No t Available atenolol 50 mg tablet active Not Available Not Available No t Available Eliquis 5 mg tablet active Not Available Not Available Not Available Vitals None Recorded Social History None recorded. Functional Status None recorded. Mental Status None recorded. Family History Nothing Reported. Medical History No medical history recorded. Past Encounters Encounter ID Performer Location Encounter Start Date Encounter Closed Date Diagnosis/Indication Diagnosis SNOMED-CT Code Diagnosis ICD10 Code Diagnosis Note [id number] Robert Anderson MD [facility] [address] [place] [address] [place] [address] 12/05/2020 09:05:19 12/05/2020 10:09:27 Intervertebral disc disorder of cervical region with myelopathy 68158857 M50.03 Abnormal gait 96569638 R 26.81 Essential tremor 9736849 09 G25.0 [id number] Robert Anderson MD [facility] [address] [place] [address] [place] [address] 12/18/2020 10:38:59 12/18/2020 11:30:29 Abnormal gait 79062758 R26.81 Essential tremor 7408045 09 G25.0 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 77679585 M51.04 [id number] Robert Anderson MD [facility] [address] [place] [address] [place] [address] 01/10/2021 14:24:17 01/14/2021 09:10:39 Abnormal gait 10031081 R26.81 Essential tremor 0281533 09 G25.0 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 08077908 M51.04 [id number] Robert Anderson MD [facility] [address] [place] [address] [place] [address] 01/07/2022 11:37:21 01/07/2022 14:25:26 Abnormal gait 87454427 R26.81 Essential tremor 9205621 09 G25.0 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 14345818 M51.04 [id number] Robert Anderson MD [facility] [address] [place] [address] [place] [address] 04/03/2022 10:27:45 04/03/2022 11:19:57 Abnormal gait 39751151 R26.81 Essential tremor 5097436 09 G25.0 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 26270130 M51.04 [id number] Robert Anderson MD [facility] [address] [place] [address] [place] [address] 10/29/2022 12:15:02 10/29/2022 17:01:26 Abnormal gait 60315811 R26.81 Essential tremor 0039095 09 G25.0 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 89278745 M51.04 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 [id number] Robert Anderson MD [facility] [address] [place] [address] [place] [address] 02/24/2023 12:28:21 02/24/2023 17:11:50 Abnormal gait 78953128 R26.81 Essential tremor 3721348 09 G25.0 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 24998765 M51.04 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 5642046 G21.4 Multiple s ystem atrophy 403746827 G90.3 Health Concerns Section Related Observation LastModified by Organization Detai ls LastModified Time None Recorded Concern Status LastModified by Organization Details LastModified Time None Recorded Advance Directives Directive None Recorded Payers Encounter Date Sequence Insurance Name Policy Number Policy Nieto Covered Member ID Nieto Member ID Guarantor Name 01/10/2021 1 [place] Caridad Yin [id number] 2 Caridad Yin 01/10/2021 2 [place] [id number] Caridad Yin [id number] Caridad Yin 01/07/2022 1 [place] Caridad Yin [id number] 2 Caridad Yin 01/07/2022 2 [place] [id number] Caridad Yin [id number] Caridad Yin 04/03/2022 1 [place] Caridad Yin [id number] 2 Caridad Yin 04/03/2022 2 [place] [id number] Caridad Yin [id number] Caridad Yin 10/29/2022 1 [place] Caridad Yin [id number] 2 Caridad Yin 10/29/2022 2 [place] [id number] Caridad Yin [id number] Caridad Yin 02/24/2023 1 [place] [facility] G[facility]ERNMENT SERVICES Caridad Yin [id number] 2 Caridad Yin 02/24/2023 2 [place] [id number] Caridad Yin [id number] Caridad Yin Notes Date Note Type Note Provider Name and Address Organization Details Recorded Time 01/10/2021 text/html He presents for neurology reconsultation for muscle weakness in face hips and legs. He also reports tiredness and lightheaded dizziness. 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 Past history includes sleep apnea and heart arrhythmia, both diagnosed ~2019. He is accompanied by his who helps with the history. He is right-handed. Since December 18, 2020, his walking is about 20% better with walking, and muscle weakness in hips and legs with difficulty standing from sitting position. Just before that appointment he started a month of physical therapy for strengthening, agility and balance. Physical therapy has since been completed and he feels that has contributed to his walking improvement. Nevertheless, his just walk with him this morning and feels that he is 50% slower than he used to be and he shuffling. He did not report any change in his initial 2019 concern of right hand tremor which I had diagnosed as essential tremor. He does not report any falls. He does not report any change in intermittent lightheadedness with standing, tiredness or drooling. Interim history from December 05, 2020 neurology reconsultation is reviewed:However, he is concerned about other issues: He has had muscle weakness in his face for about 1.5 years. By this he means he has had drooling when he sits in his chair. It has worsened. He has no other weakness in his face, no problems with chewing swallowing or talking. He has had weakness in his hips and legs for about 6 months. There has been progressive worsening. He currently is unable to stand from kneeling. He is in physical therapy trying to work on this.He has had lightheaded dizziness episodes while walking for about 4 months. And event lasts about a minute or less and may cause stumbling but he has not fallen. He pauses during an event and when it passes he continues on. He has had tiredness for about 1.5 years, since around the time he had sleep apnea and heart arrhythmia diagnosed. Currently, his notices that he can hardly stay awake and usually falls asleep if he just sits down. He has chronic neck pain. He has no mid back pain but he has some low back pain.. 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 This has slowly worsened. It started to bother his handwriting significantly a few months ago, earlier in 2019. Around the same time, he also began having trouble eating with his right hand, especially eating soup. The tremor does not embarrass him. He has not noticed any emerging right hand tremor when his right hand is at rest. He has not noticed a tremor in his left hand or any other part of his body. He has no problems walking. Later during the exam he says that he sometimes notices imbalance. He has not fallen or stumbled. His last fall was on the final step going down stairs over a year ago. He has an occasional single twitch right before he goes to sleep, otherwise he has no movements or restlessness during and before he goes to sleep. His has told him that he has occasionally talked or called out his sleep in recent years. He has not fallen out of bed. He has no recent unusual depression or anxiety, just situational depression about the constraints from the coronavirus pandemic epidemic. His sense of smell has been diminishing for a number of years, now he can only smell a few aromas. His sense of color vision is okay. He has no unexplained constipation. He has no particular problem with memory. Robert Anderson MD [address] [place] [address], [phone], Formerly [facility] 01/10/2021 15:35:11 01/07/2022 text/html He presents for neurology reconsultation for muscle weakness in face hips and legs. He also reports tiredness and lightheaded dizziness. 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 Past history includes sleep apnea and heart arrhythmia, both diagnosed ~2019. He is accompanied by his who helps with the history. He is right-handed. Since January 10, 2021 neurology follow-up encounter, just under 1 year ago, he has continued to have dizziness and he has had worsening imbalance. Dizziness was at its worst 1 day this past summer 2021 when he had onset of bad dizziness in the middle of a walk and had trouble making it home where he finally sat down. He was still dizzy and went to the emergency room where they diagnosed dehydration, gave him IV fluids and discharged him. 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 His noted that his gait was better after the IV fluids. He has imbalance when he walks even when he is not dizzy. Dizziness fluctuates and on days when he is more dizziness than others he sometimes decides not to take walks because of the dizziness. He has bladder incontinence and wears a diaper context prostate disease. He has no bowel dyscontrol. Interim history from January 10, 2021 neurology follow-upSince December 18, 2020, his walking is about 20% better with walking, and muscle weakness in hips and legs with difficulty standing from sitting position. Just before that appointment he started a month of physical therapy for strengthening, agility and balance. Physical therapy has since been completed and he feels that has contributed to his walking improvement. Nevertheless, his just walk with him this morning and feels that he is 50% slower than he used to be and he shuffling. He did not report any change in his initial 2019 concern of right hand tremor which I had diagnosed as essential tremor. He does not report any falls. He does not report any change in intermittent lightheadedness with standing, tiredness or drooling. Interim history from December 05, 2020 neurology reconsultation is reviewed:However, he is concerned about other issues: He has had muscle weakness in his face for about 1.5 years. By this he means he has had drooling when he sits in his chair. It has worsened. He has no other weakness in his face, no problems with chewing swallowing or talking. He has had weakness in his hips and legs for about 6 months. There has been progressive worsening. He currently is unable to stand from kneeling. He is in physical therapy trying to work on this.He has had lightheaded dizziness episodes while walking for about 4 months. And event lasts about a minute or less and may cause stumbling but he has not fallen. He pauses during an event and when it passes he continues on. He has had tiredness for about 1.5 years, since around the time he had sleep apnea and heart arrhythmia diagnosed. Currently, his notices that he can hardly stay awake and usually falls asleep if he just sits down. He has chronic neck pain. He has no mid back pain but he has some low back pain.. 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 This has slowly worsened. It started to bother his handwriting significantly a few months ago, earlier in 2019. Around the same time, he also began having trouble eating with his right hand, especially eating soup. The tremor does not embarrass him. He has not noticed any emerging right hand tremor when his right hand is at rest. He has not noticed a tremor in his left hand or any other part of his body. He has no problems walking. Later during the exam he says that he sometimes notices imbalance. He has not fallen or stumbled. His last fall was on the final step going down stairs over a year ago. He has an occasional single twitch right before he goes to sleep, otherwise he has no movements or restlessness during and before he goes to sleep. His has told him that he has occasionally talked or called out his sleep in recent years. He has not fallen out of bed. He has no recent unusual depression or anxiety, just situational depression about the constraints from the coronavirus pandemic epidemic. His sense of smell has been diminishing for a number of years, now he can only smell a few aromas. His sense of color vision is okay. He has no unexplained constipation. He has no particular problem with memory. Robert Anderson MD [address] [place] [address], [phone], Formerly [facility] 01/07/2022 12:59:45 04/03/2022 text/html Neuology follow up for muscle weakness in face hips and legs. He also reports tiredness and lightheaded dizziness. 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 Past history includes sleep apnea and heart arrhythmia, both diagnosed ~2019. He is accompanied by his who helps with the history. He is right-handed. Since January 07, 2022 neurology follow-up encounter, he has started and is continuing physical therapy with Meli Vazquez at [facility]. It has helped a little with his imbalance. He is stumbling less the stumbles are more mild, on the small side. They still happen multiple times per day. mentions they tend to happen if he tripped on something, a rug on particular. She then herself volunteers that a practical solution would be to take up the rugs that are not the [id number] part of the carpeting and there home. He continues episodic dizziness although less than previously seen this still occurs two or three times per day, typically after he has already stood up and when he is standing or walking. His episodes also contribute to his stumbling. Often the dizziness will happen if he turns too fast. Physical therapy is working with him on turning fast and keeping his balance. I asked him to ask physical therapy to additionally work on turning more slowly with awareness.He does not feel in danger of falling with the stumbling. He does not believe that a cane would help and physical therapy has not brought it up.I ask him to talk to primary care and cardiology about the dizziness as it might relate medications, blood pressure medications in particular that he is. There may be a different optimal point of blood pressure control decided upon by primary care or cardiology when they understand that he is currently getting dizzy/lightheaded and this is making him stumble. 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 He is agreeable with contacting those providers to focus on this situation. >>>>>>>>>>>>>>>>>>>>> >>>>>Interim history from January 07, 2022 neurology follow-upSince January 10, 2021 neurology follow-up encounter, just under 1 year ago, he has continued to have dizziness and he has had worsening imbalance. Dizziness was at its worst 1 day this past summer 2021 when he had onset of bad dizziness in the middle of a walk and had trouble making it home where he finally sat down. He was still dizzy and went to the emergency room where they diagnosed dehydration, gave him IV fluids and discharged him. 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 His noted that his gait was better after the IV fluids. He has imbalance when he walks even when he is not dizzy. Dizziness fluctuates and on days when he is more dizziness than others he sometimes decides not to take walks because of the dizziness. He has bladder incontinence and wears a diaper context prostate disease. He has no bowel dyscontrol. >>>>>>>>>>>>>>>>>>>>> >>>>>Interim history from January 10, 2021 neurology follow-upSince December 18, 2020, his walking is about 20% better with walking, and muscle weakness in hips and legs with difficulty standing from sitting position. Just before that appointment he started a month of physical therapy for strengthening, agility and balance. Physical therapy has since been completed and he feels that has contributed to his walking improvement. Nevertheless, his just walk with him this morning and feels that he is 50% slower than he used to be and he shuffling. He did not report any change in his initial 2019 concern of right hand tremor which I had diagnosed as essential tremor. He does not report any falls. He does not report any change in intermittent lightheadedness with standing, tiredness or drooling. >>>>>>>>>>>>>>>>>>>>> >>>>>>>Interim history from December 05, 2020 neurology reconsultation is reviewed:He is concerned about other issues: He has had muscle weakness in his face for about 1.5 years. By this he means he has had drooling when he sits in his chair. It has worsened. He has no other weakness in his face, no problems with chewing swallowing or talking. He has had weakness in his hips and legs for about 6 months. There has been progressive worsening. He currently is unable to stand from kneeling. He is in physical therapy trying to work on this.He has had lightheaded dizziness episodes while walking for about 4 months. And event lasts about a minute or less and may cause stumbling but he has not fallen. He pauses during an event and when it passes he continues on. He has had tiredness for about 1.5 years, since around the time he had sleep apnea and heart arrhythmia diagnosed. Currently, his notices that he can hardly stay awake and usually falls asleep if he just sits down. He has chronic neck pain. He has no mid back pain but he has some low back pain..>>>>>>>>>>>>>>> >>>>>>>>>>>>>>>>>>>>> >>>>>>>>>>>>>>>>>>>>> >>>>>>>>>>>>>>>>>Pres enting symptomatology relating to right-handed tremor is reviewed from initial neurology consultation January 23, 2020: He retired from his profession of dentistry in 2003. Several months after that he began noticing a tremor in his right hand with activities. This has slowly worsened. It started to bother his handwriting significantly a few months ago, earlier in 2019. Around the same time, he also began having trouble eating with his right hand, especially eating soup. The tremor does not embarrass him. He has not noticed any emerging right hand tremor when his right hand is at rest. He has not noticed a tremor in his left hand or any other part of his body. He has no problems walking. Later during the exam he says that he sometimes notices imbalance. He has not fallen or stumbled. His last fall was on the final step going down stairs over a year ago. He has an occasional single twitch right before he goes to sleep, otherwise he has no movements or restlessness during and before he goes to sleep. His has told him that he has occasionally talked or called out his sleep in recent years. He has not fallen out of bed. He has no recent unusual depression or anxiety, just situational depression about the constraints from the coronavirus pandemic epidemic. His sense of smell has been diminishing for a number of years, now he can only smell a few aromas. His sense of color vision is okay. He has no unexplained constipation. He has no particular problem with memory. Robert Anderson MD [address] [place] [address], [phone], Former[facility] 04/03/2022 11:05:35 10/29/2022 text/html Neuology follow up for muscle weakness in face hips and legs. He also reports tiredness and lightheaded dizziness. 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 Past history includes sleep apnea and heart arrhythmia, both diagnosed ~2018. He is accompanied by his who helps with the history. He is right-handed. >>>>>>>>>>>>>>>>>>>>> >>>>>October 29, 2022Since April 03, 2022 neurology follow-up encounter, he has had some worsening of his gait imbalance, he feels it all the time and more prominently. Dizziness has become more frequent, still with occurrences centered around standing up or walking.He has had a fall, his first in recent years, around the end of September 2022 at their vacation home or just after getting back. Dizziness was not involved. He did not hurt himself. He has stopped his exercise walks in the morning since early October, in large part because he has increased hesitance about the possibility of a fall since that fall.Otherwise, he knows of no symptoms or situations of concern new over the last 6-7 months. His memory is a little worse, a little more forgetful. He remains incontinent of bladder? t his has been for several years. There is no worsening of bowel control. She has no problems dressing himself except it is harder to bend over to put on his shoes. He has no problems turning in bed. He has no problems with coordination of his upper extremities.I did not ask about mood? I will ask at follow-up. >>>>>>>>>>>>>>>>>>>>> >>>>>April 03, 2022Since January 07, 2022 neurology follow-up encounter, he has started and is continuing physical therapy with Meli Vazquez at [facility]. It has helped a little with his imbalance. He is stumbling less the stumbles are more mild, on the small side. They still happen multiple times per day. mentions they tend to happen if he tripped on something, a rug on particular. She then herself volunteers that a practical solution would be to take up the rugs that are not the [id number] part of the carpeting and there home. He continues episodic dizziness although less than previously seen this still occurs two or three times per day, typically after he has already stood up and when he is standing or walking. His episodes also contribute to his stumbling. Often the dizziness will happen if he turns too fast. Physical therapy is working with him on turning fast and keeping his balance. I asked him to ask physical therapy to additionally work on turning more slowly with awareness.He does not feel in danger of falling with the stumbling. He does not believe that a cane would help and physical therapy has not brought it up.I ask him to talk to primary care and cardiology about the dizziness as it might relate medications, blood pressure medications in particular that he is. There may be a different optimal point of blood pressure control decided upon by primary care or cardiology when they understand that he is currently getting dizzy/lightheaded and this is making him stumble. 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 He is agreeable with contacting those providers to focus on this situation. >>>>>>>>>>>>>>>>>>>>> >>>>>Interim history from January 07, 2022 neurology follow-upSince January 10, 2021 neurology follow-up encounter, just under 1 year ago, he has continued to have dizziness and he has had worsening imbalance. Dizziness was at its worst 1 day this past summer 2021 when he had onset of bad dizziness in the middle of a walk and had trouble making it home where he finally sat down. He was still dizzy and went to the emergency room where they diagnosed dehydration, gave him IV fluids and discharged him. 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 His noted that his gait was better after the IV fluids. He has imbalance when he walks even when he is not dizzy. Dizziness fluctuates and on days when he is more dizziness than others he sometimes decides not to take walks because of the dizziness. He has bladder incontinence and wears a diaper context prostate disease. He has no bowel dyscontrol. >>>>>>>>>>>>>>>>>>>>> >>>>>Interim history from January 10, 2021 neurology follow-upSince December 18, 2020, his walking is about 20% better with walking, and muscle weakness in hips and legs with difficulty standing from sitting position. Just before that appointment he started a month of physical therapy for strengthening, agility and balance. Physical therapy has since been completed and he feels that has contributed to his walking improvement. Nevertheless, his just walk with him this morning and feels that he is 50% slower than he used to be and he shuffling. He did not report any change in his initial 2019 concern of right hand tremor which I had diagnosed as essential tremor. He does not report any falls. He does not report any change in intermittent lightheadedness with standing, tiredness or drooling. >>>>>>>>>>>>>>>>>>>>> >>>>>>>Interim history from December 05, 2020 neurology reconsultation is reviewed:He is concerned about other issues: He has had muscle weakness in his face for about 1.5 years. By this he means he has had drooling when he sits in his chair. It has worsened. He has no other weakness in his face, no problems with chewing swallowing or talking. He has had weakness in his hips and legs for about 6 months. There has been progressive worsening. He currently is unable to stand from kneeling. He is in physical therapy trying to work on this.He has had lightheaded dizziness episodes while walking for about 4 months. And event lasts about a minute or less and may cause stumbling but he has not fallen. He pauses during an event and when it passes he continues on. He has had tiredness for about 1.5 years, since around the time he had sleep apnea and heart arrhythmia diagnosed. Currently, his notices that he can hardly stay awake and usually falls asleep if he just sits down. He has chronic neck pain. He has no mid back pain but he has some low back pain..>>>>>>>>>>>>>>> >>>>>>>>>>>>>>>>>>>>> >>>>>>>>>>>>>>>>>>>>> >>>>>>>>>>>>>>>>>Pres enting symptomatology relating to right-handed tremor is reviewed from initial neurology consultation January 23, 2020: He retired from his profession of dentistry in 2003. Several months after that he began noticing a tremor in his right hand with activities. This has slowly worsened. It started to bother his handwriting significantly a few months ago, earlier in 2019. Around the same time, he also began having trouble eating with his right hand, especially eating soup. The tremor does not embarrass him. He has not noticed any emerging right hand tremor when his right hand is at rest. He has not noticed a tremor in his left hand or any other part of his body. He has no problems walking. Later during the exam he says that he sometimes notices imbalance. He has not fallen or stumbled. His last fall was on the final step going down stairs over a year ago. He has an occasional single twitch right before he goes to sleep, otherwise he has no movements or restlessness during and before he goes to sleep. His has told him that he has occasionally talked or called out his sleep in recent years. He has not fallen out of bed. He has no recent unusual depression or anxiety, just situational depression about the constraints from the coronavirus pandemic epidemic. His sense of smell has been diminishing for a number of years, now he can only smell a few aromas. His sense of color vision is okay. He has no unexplained constipation. He has no particular problem with memory. Robert Anderson MD [address] [place] [address] [place], [phone], Formerly [facility] 10/29/2022 13:25:05 02/24/2023 text/html Neuology follow up for muscle weakness in face hips and legs. He also reports tiredness and lightheaded dizziness. 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 Past history includes sleep apnea and heart arrhythmia, both diagnosed ~2019. He is accompanied by his son Manuel, for the 1st time. Not present: His who needed detal work. >>>>>>>>>>>>>>>>>>>>> >>>>>February 24, 2022Since October 29, 2022 neurology follow-up encounter, he has started and titrated carbidopa/levodopa 25/100 mg tablets, first one half tablet after breakfast, then after a week a full tablet. He has had no side effects. He has noticed no benefit and walking or imbalance or slowness more particularly.Has returned to physical therapy. They said the cane was not appropriate for him and recommended a rollator walker.He has had at least three falls according to his son. One was outside before he got the walker that physical therapy recommended.Two more were inside. He is mostly if not all the time walking without a walker inside. The space is too tight, he explains. He has told this to his son and to the physical therapist. They worked on tight spaces with a walker at the most recent physical therapy session. He has not yet tried the walker at home since then. We review that he has said that his baseline dizziness was not involved in his first fall, September 2022. For the more recent falls, for one, he was reaching high above his head for something. He was not dizzy with that one. His son thinks he was dizzy with another one. >>>>>>>>>>>>>>>>>>>>> >>>>>October 29, 2022Since April 03, 2022 neurology follow-up encounter, he has had some worsening of his gait imbalance, he feels it all the time and more prominently. Dizziness has become more frequent, still with occurrences centered around standing up or walking.He has had a fall, his first in recent years, around the end of September 2022 at their vacation home or just after getting back. Dizziness was not involved. He did not hurt himself. He has stopped his exercise walks in the morning since early October, in large part because he has increased hesitance about the possibility of a fall since that fall.Otherwise, he knows of no symptoms or situations of concern new over the last 6-7 months. His memory is a little worse, a little more forgetful. He remains incontinent of bladder? t his has been for several years. There is no worsening of bowel control. She has no problems dressing himself except it is harder to bend over to put on his shoes. He has no problems turning in bed. He has no problems with coordination of his upper extremities.I did not ask about mood? I will ask at follow-up. >>>>>>>>>>>>>>>>>>>>> >>>>>April 03, 2022Since January 07, 2022 neurology follow-up encounter, he has started and is continuing physical therapy with Meli Vazquez at [facility]. It has helped a little with his imbalance. He is stumbling less the stumbles are more mild, on the small side. They still happen multiple times per day. mentions they tend to happen if he tripped on something, a rug on particular. She then herself volunteers that a practical solution would be to take up the rugs that are not the [id number]-me-[id number] part of the carpeting and there home. He continues episodic dizziness although less than previously seen this still occurs two or three times per day, typically after he has already stood up and when he is standing or walking. His episodes also contribute to his stumbling. Often the dizziness will happen if he turns too fast. Physical therapy is working with him on turning fast and keeping his balance. I asked him to ask physical therapy to additionally work on turning more slowly with awareness.He does not feel in danger of falling with the stumbling. He does not believe that a cane would help and physical therapy has not brought it up.I ask him to talk to primary care and cardiology about the dizziness as it might relate medications, blood pressure medications in particular that he is. There may be a different optimal point of blood pressure control decided upon by primary care or cardiology when they understand that he is currently getting dizzy/lightheaded and this is making him stumble. 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 He is agreeable with contacting those providers to focus on this situation. >>>>>>>>>>>>>>>>>>>>> >>>>>Interim history from January 07, 2022 neurology follow-upSince January 10, 2021 neurology follow-up encounter, just under 1 year ago, he has continued to have dizziness and he has had worsening imbalance. Dizziness was at its worst 1 day this past summer 2021 when he had onset of bad dizziness in the middle of a walk and had trouble making it home where he finally sat down. He was still dizzy and went to the emergency room where they diagnosed dehydration, gave him IV fluids and discharged him. 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 His noted that his gait was better after the IV fluids. He has imbalance when he walks even when he is not dizzy. Dizziness fluctuates and on days when he is more dizziness than others he sometimes decides not to take walks because of the dizziness. He has bladder incontinence and wears a diaper context prostate disease. He has no bowel dyscontrol. >>>>>>>>>>>>>>>>>>>>> >>>>>Interim history from January 10, 2021 neurology follow-upSince December 18, 2020, his walking is about 20% better with walking, and muscle weakness in hips and legs with difficulty standing from sitting position. Just before that appointment he started a month of physical therapy for strengthening, agility and balance. Physical therapy has since been completed and he feels that has contributed to his walking improvement. Nevertheless, his just walk with him this morning and feels that he is 50% slower than he used to be and he shuffling. He did not report any change in his initial 2019 concern of right hand tremor which I had diagnosed as essential tremor. He does not report any falls. He does not report any change in intermittent lightheadedness with standing, tiredness or drooling. >>>>>>>>>>>>>>>>>>>>> >>>>>>>Interim history from December 05, 2020 neurology reconsultation is reviewed:He is concerned about other issues: He has had muscle weakness in his face for about 1.5 years. By this he means he has had drooling when he sits in his chair. It has worsened. He has no other weakness in his face, no problems with chewing swallowing or talking. He has had weakness in his hips and legs for about 6 months. There has been progressive worsening. He currently is unable to stand from kneeling. He is in physical therapy trying to work on this.He has had lightheaded dizziness episodes while walking for about 4 months. And event lasts about a minute or less and may cause stumbling but he has not fallen. He pauses during an event and when it passes he continues on. He has had tiredness for about 1.5 years, since around the time he had sleep apnea and heart arrhythmia diagnosed. Currently, his notices that he can hardly stay awake and usually falls asleep if he just sits down. He has chronic neck pain. He has no mid back pain but he has some low back pain..>>>>>>>>>>>>>>> >>>>>>>>>>>>>>>>>>>>> >>>>>>>>>>>>>>>>>>>>> >>>>>>>>>>>>>>>>>Pres enting symptomatology relating to right-handed tremor is reviewed from initial neurology consultation January 23, 2020: He retired from his profession of dentistry in 2003. Several months after that he began noticing a tremor in his right hand with activities. This has slowly worsened. It started to bother his handwriting significantly a few months ago, earlier in 2019. Around the same time, he also began having trouble eating with his right hand, especially eating soup. The tremor does not embarrass him. He has not noticed any emerging right hand tremor when his right hand is at rest. He has not noticed a tremor in his left hand or any other part of his body. He has no problems walking. Later during the exam he says that he sometimes notices imbalance. He has not fallen or stumbled. His last fall was on the final step going down stairs over a year ago. He has an occasional single twitch right before he goes to sleep, otherwise he has no movements or restlessness during and before he goes to sleep. His has told him that he has occasionally talked or called out his sleep in recent years. He has not fallen out of bed. He has no recent unusual depression or anxiety, just situational depression about the constraints from the coronavirus pandemic epidemic. His sense of smell has been diminishing for a number of years, now he can only smell a few aromas. His sense of color vision is okay. He has no unexplained constipation. He has no particular problem with memory. Robert Anderson MD [address] [place] [address], [phone], Formerly [facility] Neurology [facility] 02/24/2023 13:21:29
== END 2024-04-27 15:51 | disposition home or self-care (01) ==
LOC: HO.HSMS 15:17
PROVIDERS: PCP Family Medicine; Visit Provider Psychiatry & Neurology Neurology
DX: G20.A1 Parkinson'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 dyskinesia, without mention of fluctuations (principal)
CPT/HCPCS: 99214; G2211

== ENCOUNTER → 2024-04-27 15:16 | Outpatient (BNVA) | payer MEDICARE, SELFPAY | PROVIDERS: PCP Family Medicine; Visit Provider Psychiatry & Neurology Neurology | DX: G20.A1 Parkinson'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 dyskinesia, without mention of fluctuations (principal) | CPT/HCPCS: 99212 ==

== ENCOUNTER 2024-11-02 10:58 | Outpatient (AMB) | payer MEDICARE, SELFPAY ==
--- OUTSIDE RECORDS SUMMARY | 2024-11-01 09:45 | XMS_ITS | Encounter Summary ---
Author Organization [facility] Address [address] [facility] [address] [place] [address] Phone Care Team Providers Care Piece Dyeing Machine Tender Name Role Phone Andie Jed Bonilla DO Unavailable Serene Finch RECREATIONAL RESORT MANAGER Unavailable Laura Fernandes MD Primary Care Provider Reason for Visit * Physical Therapy (Routine) - Authorized Specialty Diagnoses / Procedures Referred By Birgit skinner Referred To Contact Physical Therapy Diagnoses PARKINSONISM Laura Fernandes MD Phone: tel: fax: [email or web address] [address] [address] Phone: tel: Referral ID Status Reason Start Date Expiration Date V isits Requested Visits Authorized [id number] Authorized 08/02/2024 08/02/2025 99 99 Encounter Details Date Type Department Care Team (Late st Contact Info) Description 11/01/2024 9:45 AM EDT Office Visit [facility] [address] [place] [address] Laura Fernandes MD [address] [place] [address] [email or web address] La Whelan, PT [address] [place] [address] [email or web address] Low back pain, unspecified back pain laterality, unspecified chronicity, unspecified whether sciatica present (Primary Dx) Social History Tobacco Use Types Packs/Day Years Used Date Smoking Tobacco: Never Smokeless Tobacco: Never Alcohol Use Standard Drinks/Week Comments Not Currently 0 (1 standard drink = 0.6 oz pur e alcohol) 2x/month Education Answer Date Recorded Are you interested in more education? Not on stanley e 06/06/2022 Are you concerned about learning? Not on file 06/06/2022 No 06/06/2022 No 06/06/2022 Digital Access Answer Date Recorded No 07/07/2022 No 07/07/2022 Reliable internet access at home? Not on file 07/07/2022 Device with a working camera? Not on file Intimate Partner Violence Answer Date R ecorded Are you denied basic needs s uch as food, clothing, or medical care? No 03/03/2024 In the past 12 months have y ou been in a relationship with a person who hurts, threatens, or tries to control you? No 03/03/2024 Are you denied basic needs s uch as food, clothing, or medical care? No 03/03/2024 In the past 12 months have y ou been in a relationship with a person who hurts, threatens, or tries to control you? No 03/03/2024 Sex and Gender Information Value Date Recorded Sex Assigned at Male 12/11/2021 8:55 AM EDT Legal Sex Male 5:14 AM EST Gender Identity Male 12/11/2021 8:55 AM EDT Sexual Orientation Not on file documented as of this encounter Progress Notes * La Whelan, PT - 11/01/2024 9:45 AM EDT Physical Therapy Treatment Note Patient Name: Caridad Yin Date of : 1940 This patient has attended 3 visits since the onset Physical Therapy. Referring MD: Laura Fernandes MD [address] [place] [phone] Low back pain, unspecified back pain laterality, unspecified chronicity, unspecified whether sciatica present [M54.50] Subjective/History of Present Illness: Pt presents to PT with LUMBAR PAIN, LOW BACK PAIN and parkinsonism. Currently pt is c/o mid and low back pain, especially on the R. Pt has hx of back pain and it was again exacerbatedby a longer car ride several weeks ago. Precautions: HX of FALLS - pt reports no falls in past 9 months Subjective comments: My back is bothering me today Objective Measures: Range of Motion: Lumbar: Flexion in sitting finger tips 4-5 inches from floor Extension in standing limited Rotation in standing limited B, but not painful Decreased closed chain dorsiflexion ROM Strength: Seated hip flexion B 4/5 Seated knee extension 5/5 Seated knee flexion 4+/5 Dorsiflexion seated L 4+/5, R 4/5 Plantarflexion - unable to perform single leg heel raises EHL symmetrical against mod resistance B Scapular retraction L 3/5, R 3-/5 Interventions: See encounter report for minutes associated with each intervention. Interventions Min. Parameters THERAPEUTIC ACTIVITY 10 -bed mob, bridge and place, log rolling, sit to supine with body mechanics THERAPEUTIC EXERCISE 30 -Scifit seat 20, arms 5 x 7 minutes -seated lumbar flexion stretch 10 sec holds -sit to stand from various heights mat focus on anterior wt shift and attempting to decrease UE assist -SKTC L and R x 3 -PPT attempts -SLR x 10 L and R -seated ab stab very challenged Standing in front of mat: -YTB horizontal abduction x 10 -YTB L and R chop pattern x 10 -suitcase carry 5# L and R with ambulation length of gym and back NEURO RE-EDUCATION - HOME PROGRAM - Home Exercise Program: Access Code: [email or web address] URL: [email or web address] Date: 10/27/2024 Prepared by: La Whelan Exercises - Seated Lumbar Flexion Stretch - 2 x daily - 7 x weekly - 1 sets - 3 reps - 10 seconds hold - Sit to Stand with Armchair - 1 x daily - 7 x weekly - 1 sets - 1 reps - Hooklying Single Knee to Chest - 1 x daily - 7 x weekly - 1 sets - 3 reps - 5-10 seconds hold - Active Straight Leg Raise with Quad Set - 1 x daily - 7 x weekly - 1-3 sets - 5 reps Assessment: Pt unable to perform supine to sit with log roll and proper body mechanics without mod assist for transfer. Continued challenge with anterior wt shift for proper sit to stand mechanics. Pt reports heis doing his exercises on the ground and it hurts his back to get up and down. Pt instructed to perform on bed instead. Pt is very challenged actively recruiting ab stabilizers. Bridging for bed mob continues to produce some LBP. Pt did not report pain with standing TE. No LOB with suitcase carry Plan: Progressive stretching, strengthening and stabilization Transfer and gait training [place], [place] [id number] Goals: GOAL (Short Term): -Patient will achieve full range of motion to put on socks and shoes without increased pain in 6 week(s). -Patient will demonstrate proper mechanics with sit to stand transfers without reports of increasedback pain within 6 weeks. -Patient is able to walk > 5 minutes with LRAD without increased pain within 6 week(s). -Patient is able to tolerate sitting for > 60 minutes without increased pain to allow for increased ease of travel within 6 week(s). OUTCOME (Art Objects Supervisor): -Patient is able to resume waling 1 mile with LRAD and without increased pain within 12 week(s). -Patient is able to demonstrate independent home program within 12 week(s). -Patient is able to demonstrate proper body mechanics with bed mob and functional ADL's and posturewith standing and ambulatory ADL's with less posterior LOB reported within 12 weeks. -Patient to report a clinically significant improvement in modified Oswestry score showing improvedfunctional mobility in 12 weeks. Patient Stated Goal: Return to walking at least 1/2 mile, maintain functional abilities and improve ROM and flexibility documented in this encounter Plan of Treatment Upcoming Encounters Date Type Department Care Team (Late st Contact Info) Description 11/08/2024 9:45 AM EDT Office Visit [address] [address] Laura Fernandes MD [address] [place] [address] La Whelan, PT [address] [place] [address] 11/15/2024 9:45 AM EDT Office Visit [address] [address] Laura Fernandes MD [address] [place] [address] La Whelan, PT [address] [place] [address] 11/22/2024 9:45 AM EDT Office Visit [address] [address] Laura Fernandes MD [address] [place] [address] La Whelan, PT [address] [place] [address] 11/29/2024 9:45 AM EDT Office Visit [address] [address] Laura Fernandes MD [address] [place] [address] La Whelan, PT [address] [place] [address] 12/06/2024 9:45 AM EDT Office Visit [address] [address] Laura Fernandes MD [address] [place] [address] [email or web address] La Whelan, PT [address] [place] [address] [email or web address] 12/16/2024 11:00 AM EST Office Visit [facility] [address] [place] [address] Jed Chaves DO [address] [place] [address] [email or web address] documented as of this encounter Visit Diagnoses Diagnosis Low back pain, unspecified back pain laterality, unspecified chronicity, unspecified whether sciatica present- Primary documented in this encounter Care Teams Piece Dyeing Machine Tender Relationship Specialty Start Date End Date Laura Fernandes MD [address] [place] [phone] PCP - General Family Medicine 12/11/21 Jed Chaves DO [address] [place] [address] [email or web address] Hematology and Oncology 04/24/17 Serene Finch FNP [address] [place] [address] [email or web address] Nurse Practitioner Hematology and Oncology 06/08/20 documented as of this encounter Additional Source Comments The information contained in this document represents components of the legal health record. It is not the complete legal health record.[facility]
--- NOTE | 2024-11-02 10:59 | A.OFFVIS_ITS ---
Vital Signs 11/02/24 11:00 Height 5 ft 11 in Weight 177 lb 4 oz BMI 24.7 BP 110/72 Blood Pressure Location Rt brachial Position Sitting Pulse 62 Pulse Source Pulse Oximeter Pulse Oximetry (%) 99 Oxygen Delivery Method Room Air Intake Visit Reasons: 6 mo follow up Intake Note: Follow up Parkinson'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 dyskinesia, without mention of fluctuations Fpga Engineer Required: No Accompanied by: Spouse Allergies allopurinol Allergy (Mild, Verified 11/02/24 10:59) Rash ampicillin Allergy (Mild, Verified 11/02/24 10:59) Rash cefuroxime Allergy (Mild, Verified 11/02/24 10:59) Rash lisinopril Allergy (Mild, Verified 11/02/24 10:59) Rash valsartan (From Diovan) Allergy (Mild, Verified 11/02/24 10:59) Rash smz/TMP Allergy (Mild, Uncoded 04/27/24 15:21) Rash Medication List - Last Reconciled 11/02/24 by Omayra Lewis MD apixaban (Eliquis) 5 mg PO BID atorvastatin 40 mg PO DAILY carbidopa-levodopa 25-100 mg 2 tabs PO TID cholecalciferol (vitamin D3) 25 mcg PO DAILY docosahexaenoic acid-epa 120-180 mg (Fish Oil) 1 cap PO DAILY furosemide 40 mg PO DAILY levothyroxine 75 mcg PO DAILY metoprolol succinate ER 25 mg PO DAILY polyethylene glycol 3350 (Miralax) 17 grams PO DAILY rasagiline 1 mg PO DAILY vibegron (Gemtesa) 75 mg PO DAILY vitamin B complex 1 cap PO DAILY HPI Comments Details: 84y/o right handed male comes for follow up of parkinsons.he is on sinemet 25/100 2 tabs tid Balance gait and ability to engage is better but short term memory is worse. .No side effects .PT is helping Mood is stable Bowel movements-on and off constipation Gemtesa given by urologist sleep - vivid dreams , vivid dream saw a racoon woke him up . no hallucinations. Previous history-He started noticing tremors in his right hand about 10 years ago. It was intermittent and was with action. It was diagnosed as essential tremors.He later noticed difficulty with fine motor coordination and slowness in activities. In the past year he reports that his voice is softer , has drooling, handwriting is smaller, trouble using utensils , difficulty with dressing , showering, difficulty changing positions at night,slower gait , unsteady , had falls, poor balance when he changes position . He had 2 episodes of hallucinations - at night mild. He has sleep talking . He is on CPAP for DIEUDONNE. Cognition- short term memory difficulties and word finding difficulties. No h/o head injury, used round up in the past. Bowel movements are stable . He was seen by Dr. Anderson and was trialed on sinemet with no response. [facility] Medical History (Updated 11/02/24 @ 11:25 by Omayra Lewis MD) Vivid dream Malignant melanoma Basal cell carcinoma Parkinson'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 dyskinesia DIEUDONNE on CPAP Atrial fibrillation Mantle cell lymphoma Back pain BPH (benign prostatic hyperplasia) HTN (hypertension) Hypothyroidism Parotid tumor Surgical History S/P rotator cuff repair H/O thyroidectomy S/P Mohs surgery for basal cell carcinoma H/O inguinal hernia repair H/O prostate biopsy S/P TURP Social History Household Members: Spouse Caregiver staying overnight: Yes Housing: House Alcohol intake: never Patient Tobacco Use Status: Never used Tobacco Physical Exam Vital Signs: Last Vital Signs Pulse 62 11/02/24 11:00 BP 110/72 11/02/24 11:00 Pulse Ox 99 11/02/24 11:00 Oxygen Delivery Method Room Air 11/02/24 11:00 BMI result Body Mass Index 24.7 Const General: cooperative, healthy appearing and no acute distress Nutritional Appearance: average body habitus Orientation/consciousness: patient oriented x3 HEENT Head: Yes normal to inspection Neck Other: mild antecollis and restricted range of motion Neuro Other: Mild decreased blink and facial expression - mild asymmetry - decreased movement on the right No tremors Voice-mild moderate hypophonia and dysprosody Fine Finger movements -mildly decreased christine R>L Alternating hand movements - decreased christine Hand movements - decreased christine Foot taps- decreased christine 1+ cog wheel rigidity right UE gait - good stride mild slowness General: patient oriented x3 and no focal motor deficits Cranial nerves: Yes CN's II-XII intact bilaterally, Yes Bilaterally intact EOM present, Yes Normal facial strength present and Yes Midline tongue present Cognition (Neuro): normal cognition and abnormal cognition (repeats questions frequently) Motor exam (neuro): 5/5 motor strength present throughout Coordination: gqiikf-ny-moyf test normal Assessment & Plan Assessment & Plan (1) Parkinson'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 dyskinesia: Comment: Bradykinesia ,Right cog wheel rigidty hypophonia Code(s): G20.A1 - Parkinson'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 dyskinesia, without mention of fluctuations Category: Medical Qualifiers: Fluctuating manifestations: without fluctuating manifestations Qualified Code(s): G20.A1 - Parkinson'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 dyskinesia, without mention of fluctuations (2) Vivid dream: Code(s): R68.89 - Other general symptoms and signs Category: Medical Plan carbidopa /levodopa 25/100 2 tab tid PT for gait and balance - continue exercise- uses rollator Info on APDA given add melatonin 2-3 mg qhs f/u sleep med services for Dieudonne on CPAP Medications: New rasagiline 1 mg PO DAILY 30 tabs 6RF Coding Level of Care Code Est Pt Level 4 (90924) Complex EM visit Add On G2211 Diagnoses Parkinson'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 dyskinesia or fluctuating manifestations G20.A1 Fluctuating manifestations: without fluctuating manifestations Vivid dream R68.89
[2024-11-02 11:00] VITALS: BP 110/72; PULSE 62; O2SAT 99; BMI 24.7
--- OUTSIDE RECORDS SUMMARY | 2024-11-02 14:06 | XMS_ITS | Encounter Summary ---
Author Organization [facility] Address [address] [facility] [address] [place] [address] Phone Care Team Providers Care Professor Of Music Name Role Phone Andie Jed Bonilla DO Unavailable Serene Finch MEDIA/INSTRUCTIONAL DESIGNER Unavailable Laura Fernandes MD Primary Care Provider Encounter Details Date Type Department Care Team (Late st Contact Info) Description 12/12/2021 Procedure Pass [facility] Endoscopy Admitting Dept Virtual Department [address] [place] [address] Social History Tobacco Use Types Packs/Day Years Used Date Smoking Tobacco: Never Smokeless Tobacco: Never Alcohol Use Standard Drinks/Week Comments Yes 3 (1 standard drink = 0.6 oz pur e alcohol) ~3-5 glasses of wine per week Sex and Gender Information Value Date Recorded Sex Assigned at Male 12/11/2021 8:55 AM EDT Legal Sex Male 5:14 AM EST Gender Identity Male 12/11/2021 8:55 AM EDT Sexual Orientation Not on file documented as of this encounter Plan of Treatment Upcoming Encounters Date Type Department Care Team (Late st Contact Info) Description 11/08/2024 9:45 AM EDT Office Visit [address] [address] Laura Fernandes MD [address] [place] [address] La Whelan, PT [address] [place] [address] 11/15/2024 9:45 AM EDT Office Visit [address] [address] Laura Fernandes MD [address] [place] [address] La Whelan, PT [address] [place] [address] 11/22/2024 9:45 AM EDT Office Visit [address] [address] Laura Fernandes MD [address] [place] [address] La Whelan, PT [address] [place] [address] 11/29/2024 9:45 AM EDT Office Visit [address] [address] Laura Fernandes MD [address] [place] [address] La Whelan, PT [address] [place] [address] 12/06/2024 9:45 AM EDT Office Visit [facility] [address] [place] [address] Laura Fernandes MD [address] [place] [address] La Whelan, PT [address] [place] [address] 12/16/2024 11:00 AM EST Office Visit [facility] [address] [place] [address] Jed Chaves DO [address] [place] [address] [email or web address] documented as of this encounter Visit Diagnoses Not on filedocumented in this encounter Care Teams Professor Of Music Relationship Specialty Start Date End Date Laura Fernandes MD [address] [place] [address] [place] [address] PCP - General Family Medicine 12/11/21 Jed Chaves DO [address] [place] [address] [email or web address] Hematology and Oncology 04/24/17 Serene Finch FNP [address] [place] [address] [email or web address] Nurse Practitioner Hematology and Oncology 06/08/20 documented as of this encounter Additional Source Comments The information contained in this document represents components of the legal health record. It is not the complete legal health record.[facility]
--- OUTSIDE RECORDS SUMMARY | 2024-11-02 14:07 | XMS_ITS | Encounter Summary ---
Author Organization [facility] Address [address] [facility] [address] [place] [address] Phone Care Team Providers Care Cardiovascular Rn Name Role Phone Jed Chaves Chad DO Unavailable [phone] Priti Roberson Primary Care Provider [phone] Serene Finch CORRECTIONS OFFICER Unavailable [phone] Laura Fernandes MD Primary Care Provider [phone] Encounter Details Date Type Department Care Team (Late st Contact Info) Description 02/18/2021 Procedure Pass [facility] Cardiovascular And Interventional Radiology [address] [place] [address] Social History Tobacco Use Types Packs/Day Years [...] Description 11/08/2024 9:45 AM EDT Office Visit [address] [address] Laura Fernandes MD [address] [place] [address] [email or web address] La Whelan, PT [address] [place] [address] 11/15/2024 9:45 AM EDT Office Visit [address] [address] Laura Fernandes MD [address] [place] [address] [email or web address] La Whelan, PT [address] [place] [address] 11/22/2024 9:45 AM EDT Office Visit [address] [address] Laura Fernandes MD [address] [place] [address] [email or web address] La Whelan, PT [address] [place] [address] 11/29/2024 9:45 AM EDT Office Visit [address] [address] Laura Fernandes MD [address] [place] [address] [email or web address] La Whelan, PT [address] [place] [address] 12/06/2024 9:45 AM EDT Office Visit [facility] [address] [place], [place] [phone] Laura Fernandes MD [address] [place] [address] La Whelan, PT [address] [place] [address] 12/16/2024 11:00 AM EST Office Visit [facility] at [address] [address] Jed Chaves DO [address] [place] [address] [email or web address] documented as of this encounter Visit Diagnoses Not on filedocumented in this encounter Care Teams Cardiovascular Rn Relationship Specialty Start Date End Date Priti Roberson PA [address] [place] [address] PCP - General Unknown Provider Specialty 04/22/19 12/10/21 Laura Fernandes MD [address] [place] [address] [place] [address] PCP - General Family Medicine 12/11/21 Jed Chaves DO [address] [place] [address] [email or web address] Hematology and Oncology 04/24/17 Serene Finch, CORRECTIONS OFFICER [address] [place] [address] [email or web address] Nurse Practitioner Hematology and Oncology 06/08/20 documented as of this encounter Additional Source Comments The information contained in this document represents components of the legal health record. It is not the complete legal health record.[facility]
--- OUTSIDE RECORDS SUMMARY | 2024-11-02 14:07 | XMS_ITS | Encounter Summary ---
Author Organization [facility] Address [address] [facility] [address] [place] [address] Phone Care Team Providers Care Subsorter Name Role Phone Basim Plummer MD Primary Care Provider [phone] Jed Chaves DO Unavailable [phone] Priti Roberson Primary Care Provider [phone] Serene Finch TOWEL SORTER Unavailable [phone] Laura Fernandes MD Primary Care Provider [phone] Encounter Details Date Type Department Care Team (Latest Contact Info) Description 05/18/2017 Transcribe Orders [address] [place] [phone] Maddison Ferguson PA [address] [place] [address] [email or web address] Hyperplasia of prostate with lower urinary tract symptoms (LUTS) (Primary Dx) Social History Tobacco Use Types Packs/Day Years Used Date Smoking Tobacco: Never Smokeless Tobacco: Never Sex and Gender Information Value Date Recorded Sex Assigned at Male 12/11/2021 8:55 AM EDT Legal Sex Male 5:14 AM EST Gender Identity Male 12/11/2021 8:55 AM EDT Sexual Orientation Not on file documented as of this encounter Plan of Treatment Upcoming Encounters Date Type Department Care Team (Late st Contact Info) Description 11/08/2024 9:45 AM EDT Office Visit [address] [address] Laura Fernandes MD [address] [place] [address] La Whelan, PT [address] [place] [address] 11/15/2024 9:45 AM EDT Office Visit [address] [address] Laura Fernandes MD [address] [place] [address] La Whelan, PT [address] [place] [address] 11/22/2024 9:45 AM EDT Office Visit [address] [address] Laura Fernandes MD [address] [place] [address] La Whelan, PT [address] [place] [address] 11/29/2024 9:45 AM EDT Office Visit [address] [address] Laura Fernandes MD [address] [place] [address] La Whelan, PT [address] [place] [address] 12/06/2024 9:45 AM EDT Office Visit [facility] [address] [place] [address] Laura Fernandes MD [address] [place] [address] La Whelan, PT [address] [place] [address] 12/16/2024 11:00 AM EST Office Visit [facility] at [address] [address] Jed Chaves DO 30 [place] [address] [email or web address] documented as of this encounter Results * PSA (screening) (05/18/2017 1:48 PM EDT) PSA 3.35 0 - 4.00 ng/mL [facility] Blood 05/18/2017 1:48 PM EDT 05/18/2017 1:51 PM EDT us Maddison HARVEY LAB BLOOD ORDERABLES Final Result [address] [address] documented in this encounter Visit Diagnoses Diagnosis Hyperplasia of prostate with lower urinary tract symptoms (LUTS)- Primary Unspecified hyperplasia of prostate with urinary obstruction and other lower urinary tract symptoms (LUTS) documented in this encounter Care Teams Subsorter Relationship Specialty Start Date End Date Basim Plummer MD [email or web address] PCP - General 11/27/16 04/21/19 Priti Roberson PA [address] [place] [address] PCP - General Unknown Provider Specialty 04/22/19 12/10/21 Laura Fernandes MD [address] [place] [address] [place] [address] PCP - General Family Medicine 12/11/21 Jed Chaves DO [address] [place] [address] [email or web address] Hematology and Oncology 04/24/17 Serene Finch FNP [address] [place] [address] [email or web address] Nurse Practitioner Hematology and Oncology 06/08/20 documented as of this encounter Additional Source Comments The information contained in this document represents components of the legal health record. It is not the complete legal health record.[facility]
--- OUTSIDE RECORDS SUMMARY | 2024-11-02 14:07 | XMS_ITS | Encounter Summary ---
Author Organization [facility] Address [address] [facility] [address] [place] [address] Phone Care Team Providers Care Environmental Science Instructor Name Role Phone Jed Chaves DO Unavailable [phone] Priti Roberson Primary Care Provider Serene Finch DEMO COORDINATOR Unavailable [phone] Laura Frenandes MD Primary Care Provider [phone] Encounter Details Date Type Department Care Team (Late st Contact Info) Description 08/03/2019 Procedure Pass OR Admitting Dept - Virtual Department 30 [place] [address] Social History Tobacco Use Types Packs/Day Years [...] Description 11/08/2024 9:45 AM EDT Office Visit [address] [address] Laura Fernandes MD [address] [place] [address] [email or web address] La Whelan, PT [address] [place] [address] 11/15/2024 9:45 AM EDT Office Visit [address] [address] Laura Fernandes MD [address] [place] [address] [email or web address] La Whelan, PT [address] [place] [address] 11/22/2024 9:45 AM EDT Office Visit [address] [address] Laura Fernandes MD [address] [place] [address] [email or web address] La Whelan, PT [address] [place] [address] 11/29/2024 9:45 AM EDT Office Visit [address] [address] Laura Fernandes MD [address] [place] [address] [email or web address] La Whelan, PT [address] [place] [address] 12/06/2024 9:45 AM EDT Office Visit [facility] 380 [place], [place] [phone] Laura Fernandes MD [address] [place] [address] [email or web address] La Whelan, PT [address] [place] [address] 12/16/2024 11:00 AM EST Office Visit [facility] at [address] [address] Jed Chaves DO 30 [place] [address] [email or web address] documented as of this encounter Visit Diagnoses Not on filedocumented in this encounter Care Teams Environmental Science Instructor Relationship Specialty Start Date End Date Priti Roberson PA [address] [place] [address] PCP - General Unknown Provider Specialty 04/22/19 12/10/21 Laura Fernandes MD [address] [place] [address] [place] [address] PCP - General Family Medicine 12/11/21 Jed Chaves DO [address] [place] [address] [email or web address] Hematology and Oncology 04/24/17 Serene Finch, DEMO COORDINATOR [address] [place] [address] Nurse Practitioner Hematology and Oncology 06/08/20 documented as of this encounter Additional Source Comments The information contained in this document represents components of the legal health record. It is not the complete legal health record.[facility]
--- OUTSIDE RECORDS SUMMARY | 2024-11-02 14:08 | XMS_ITS | Clinical Summary ---
Author Organization [facility] Address [address] [facility] [address] [place] [address] Phone Care Team Providers Care Shell Shop Supervisor Name Role Phone AndieJed DO Unavailable Serene Finch SCHOOL MANAGER Unavailable Laura Fernandes MD Primary Care Provider Allergies Active Allergy Reactions Criticality Noted Date Comments Allopurinol Rash Low 04/25/2016 Ampicillin Unknown,Rash Low 11/08/2008 Cefuroxime Rash Low 04/25/2016 Lisinopril Unknown 11/08/2008 Phs Other Free Text-See Phs Viewer 0 11/08/2008 ALLOPURENOL Sulfamethoxazole-Trimethoprim 2021 Valsartan Unknown,Rash Low 11/08/2008 Medications cholecalciferol (VITAMIN D3) 1,000 unit tablet Take 1,000 Units by mouth daily. Active acetaminophen (TYLENOL) 160 MG chewable tablet NEEDED Active VITAMIN B COMPLEX (B COMPLEX ORAL) Active CALCIUM CITRATE/VITAMIN D3 (CITRACAL + D ORAL) 630 mg. Active omega 9-wke-kzm-fish oil 1,000 mg (120 mg-180 mg) Cap Take 1 capsule by mouth daily. Active apixaban (ELIQUIS) 5 mg tablet Take 5 mg by mouth 2 (two) times a day. Active levothyroxine (SYNTHROID, LEVOTHROID) 88 MCG tablet Take 75 mcg by mouth every morning. Active metoprolol succinate (TOPROL-XL) 25 MG 24 hr tablet Take 25 mg by mouth daily. Active atorvastatin (LIPITOR) 40 MG tablet Take 40 mg by mouth daily. Active B-complex with vitamin C Cap Take 1 capsule by mouth daily. Active carbidopa-levod opa (SINEMET) 25-100 mg per tablet TAKE 1/2 (ONE-HALF) TABLET BY MOUTH IN THE MORNING AFTER BREAKFAST FOR 1 WEEK THEN 1 TABLET IN THE MORNING AFTER BREAKFAST AFTER 3 Active hydrALAZINE (APRESOLINE) 10 MG tablet 4 Active Active Problems Patient Care Coordination No te Formatting of this note migh t be different from the original. Height 173.8cm no shoes taken by OC 02/11/2021 Problem Noted Date Diagnosed Date Rectal bleeding 12/11/2021 Assessment & Plan (12/11/2021 2:10 PM EDT): So far this is only been 1 episode, and he denied that the blood was enough to fill the toilet bowl with red. Hemoglobin remains high as it is normally, which seems to be between 16 and 17. He does endorse being dehydrated much of the time and is in fact been admitted to this in other hospitals. Has not had anything to eat today as this episode happened before breakfast. I believe he has had polyps found on colonoscopy, but unfortunately I am not able to find any reports from the scopes. Does follow with [facility] though. We will check his hemoglobin again tomorrow We will prep him for colonoscopy tonight Dr. Dillon is aware him in the hospital but has not yet seen him. Hypothyroidism 12/11/2021 Assessment & Plan (12/11/2021 2:18 PM EDT): Continue levothyroxine 88 mcg daily High blood pressure 12/11/2021 Assessment & Plan (12/11/2021 2:19 PM EDT): Blood pressures have been significantly elevated today, I suspect to at least in part to anxiety. He does have a history of taking amlodipine, however according to his med history he is no longer taking this. For now we will simply observe, but if his blood pressures remain elevated we will start something to help bring them closer to goal. Obstructive sleep apnea 12/23/2018 Assessment & Plan (12/23/2018 12:49 PM EST): Sleep apnea with continued use of CPAP. Reiterated the need for long-term beneficial effects. Persistent atrial fibrillation 05/13/2018 Assessment & Plan (12/11/2021 2:15 PM EDT): Is currently treated with metoprolol and apixaban. He is rate controlled at this time. We will continue his metoprolol We will hold his apixaban for the time being Assessment & Plan (12/23/2018 12:49 PM EST): Persistent atrial for ablation now in sinus rhythm after cardioversion without much significant change in symptomatology. We will continu rhythm control strategy for now if he goes back into A. fib we will just do rate control at the time. Being in sinus rhythm has definitely helped to his diastolic heart failure. He is not in need of diuretics anymore and is leg swelling is almost disappeared. Assessment & Plan (07/15/2018 3:57 PM EDT): Patient underwent successful cardioversion on 05/21/2018. ECG in the office today shows he is in sinus rhythm with rate of 60 bpm. He has been on atenolol for some time for blood pressure, he will remain on this. He continues on his Eliquis 5 mg twice daily. He denies any recurrence of his atrial fibrillation his cardioversion. He reports he has significantly more energy. He did undergo a sleep study and is awaiting his results. Assessment & Plan (05/13/2018 10:29 AM EDT): Persistent atrial fibrillation which is rate controlled. Symptomatology includes dizziness lightheadedness and lack of energy. He has been anticoagulated for greater than 6 weeks without any interruption. Since this is new A. fib we will pursue rhythm control with cardioversion and see how he does. He by history sounds like have significant sleep apnea and is due for his appointment end of May. CPAP will definitely help. Leg swelling 05/13/2018 Assessment & Plan (07/15/2018 3:57 PM EDT): He reports his swelling is significantly improved, on my exam he does have trace lower extremity edema. He has no other overt signs of heart failure. He is asking to stop his furosemide. I said this is fine to do if he notices a recurrence of leg swelling he can resume this I have just asked him to call the office if he does so. Assessment & Plan (05/13/2018 10:29 AM EDT): Bilateral lower extremity swelling. No signs of congestive heart failure. This is probably related to Norvasc, A. fib as well as venous reflux disease. Start Lasix 20 mg a day and see how he does. Mantle cell lymphoma 04/24/2017 Polycythemia 04/24/2017 Assessment & Plan (12/11/2021 2:18 PM EDT): At first I assumed this was due to dehydration, in fact he and his both stated he has a history of this. However I see this is quite chronic for him. He did recently have a visit with his oncologist and it was not mentioned so I suspect this is not anything significant. I saw there was concern at some point for renal mass, however on follow-up that appeared to be a simple cyst. We should keep in mind the possibility of an EPO secreting tumor, however given its stability that is probably unlikely. I will give some IV fluids as I believe he is dehydrated and has not been having anything to eat today no other intervention at this time Encounters Date Type Department Care Team Description 11/01/2024 9:45 AM EDT Office Visit [facility] [address] [place] [address] Laura Fernandes MD Markey, Amy, PT Low back pain, unspecified back pain laterality, unspecified chronicity, unspecified whether sciatica present (Primary Dx) 10/27/2024 9:45 AM EDT Office Visit [address] [address] Laura Fernandes MD Markey, Amy, PT Low back pain, unspecified back pain laterality, unspecified chronicity, unspecified whether sciatica present (Primary Dx) 10/26/2024 Orders Only [facility] at [facility] [address] [place] [address] Katy Santizo RN Polycythemia (Primary Dx) 10/18/2024 9:45 AM EDT Office Visit [address] [address] Laura Fernandes MD Markey, Amy, PT Low back pain, unspecified back pain laterality, unspecified chronicity, unspecified whether sciatica present (Primary Dx) 10/18/2024 Plan of Care Documentation [address] [address] 08/02/2024 Transcribe Orders [address] [address] Preeti Hall Encounter for rehabilitation (Primary Dx) 08/02/2024 Transcribe Orders [address] [address] Preeti Hall Encounter for rehabilitation (Primary Dx) from Last 3 Months Immunizations Immunization Administration Dates Next Due COVID-19 (Pre-12/01) Pfizer Vaccine, mRNA, PF 11/03/2020,04/04/2020,03/14/2020 Hepatitis A, Unspecified 09/24/2004,03/26/2004 INFLUENZA, SPLIT VIRUS, TRIVALENT PF 11/12/2012 INFLUENZA, SPLIT VIRUS, TRIV ALENT W/ PRESERVATIVE IM 10/27/2011,11/01/2009,11/06/2008 Influenza High-Dose Quadriva lent Preservative Free IM 11/25/2019 Influenza High-Dose Trivalen t Preservative Free IM 11/08/2018,11/13/2017,11/05/2016,10/25,10/26/2014 Influenza Quadrivalent w/ Pr eservative IM 11/08/2013 Influenza, Unspecified Formulation 12/16/2005, Novel [id number], Injectable 02/20/2009 Pneumococcal conjugate PCV13 08/01/2014 Pneumococcal polysaccharide PPSV23 11/04/2011,,06/17/2010 Td (adult), not adsorbed 11/29/2016 Tdap 11/30/2016,05/27/2006 Zoster live 10/26/2006 Zoster recombinant 02/25/2019,12/15/2018, 019 Social History Tobacco Use Types Packs/Day Years Used Date Smoking Tobacco: Never Smokeless Tobacco: Never Tobacco Cessation:Counseling Given: Not Answered Alcohol Use Standard Drinks/Week Comments Not Currently [...] AM EDT Sexual Orientation Not on file Last Filed Vital Signs Vital Sign Reading Time Taken Comments Blood Pressure 167/95 03/03/2024 3:32 PM EST Pulse 73 03/03/2024 1:15 PM EST Temperature 37 C (98.6 F) 03/03/2024 3:32 PM EST Respiratory Rate 20 03/03/2024 3:32 PM EST Oxygen Saturation 100% 03/03/2024 3:32 PM EST Inhaled Oxygen Concentration - - Weight 86.9 kg (191 lb 9.6 oz) 03/03/2024 10:10 AM EST Height 174 cm (5' 8.5 ) 03/03/2024 10:10 AM EST Body Mass Index 28.71 03/03/2024 10:10 AM EST Plan of Treatment Upcoming Encounters Date Type Department Care Team (Late st Contact Info) Description 11/08/2024 9:45 AM EDT Office Visit [address] [address] Laura Fernandes MD [address] [place] [address] La Whelan, PT [address] [place] [address] [email or web address] 11/15/2024 9:45 AM EDT Office Visit [address] [address] Laura Fernandes MD [address] [place] [address] La Whelan, PT [address] [place] [address] 11/22/2024 9:45 AM EDT Office Visit [address] [address] Laura Fernandes MD [address] [place] [address] La Whelan, PT [address] [place] [address] 11/29/2024 9:45 AM EDT Office Visit [facility] [address] [place] [address] Laura Fernandes MD [address] [place] [address] La Whelan, PT [address] [place] [address] 12/06/2024 9:45 AM EDT Office Visit [facility] [address] [place] [address] Laura Fernandes MD [address] [place] [address] La Whelan, PT [address] [place] [address] 12/16/2024 11:00 AM EST Office Visit [facility] at [address] [address] Jed Chaves DO 30 [place] [address] [email or web address] [email or web address] Health Maintenance Due Date Last Done Comments DEPRESSION SCREENING 1952 RSV VACCINE (1 - 1-dose 75+ series) 2017 TSH LEVEL 06/06/2022 06/06/2021 BLOOD PRESSURE 06/09/2024 12/11/2023 INFLUENZA VACCINE (#1) 2024 , 11/08/2018, 11/13/2017, Additional history exists COVID-19 VACCINE ( season) 2024 11/03/2020, 04/04/2020, 03/14/2020 CREATININE LEVEL 03/03/2025 03/03/2024, 10/2023, 11/26/2022, Additional history exists Adult Td,Tdap Booster 11/30/2026 11/30/2016 , 11/29/2016, 05/27/2006 HEPATITIS A VACCINES Aged Out 09/24/2004, 03/26/19 05 No longer eligible based on patient's age to complete this topic PNEUMOCOCCAL VACCINES (50+ years) Completed 08/01/2014, 11/04/2011, 11/03/2011, Additional history exists ZOSTER VACCINES Completed 02/25/2019, 11/07/2018, 12/01/2018, Additional history exists HIB VACCINES Aged Out No longer eligi ble based on patient's age to complete this topic MENINGOCOCCAL VACCINES (ACWY) Aged Out No longer eligible based on patient's age to complete this topic MENINGOCOCCAL VACCINES (B) Aged Out N o longer eligible based on patient's age to complete this topic Medical Devices Implanted Type Area Rn Clinical Review Device Identifier Shelf Expiration Date Model / Serial / Lot Hernia Mesh Procedures Procedure Name Priority Date/Time Associated Diagnosis Comments BASIC METABOLIC PANEL STAT 03/03/2024 10:27 AM EST TSH Routine 06/06/2021 10:34 AM EDT Persistent atrial fibrillation from Last 3 Months or Most Recently Relevant to Health Maintenance Results * (ABNORMAL) Basic metabolic panel (03/03/2024 10:27 AM EST) SODIUM 139 133 - 146 mmol/L [facility] CHLORIDE 105 96 - 108 mmol/L [facility] POTASSIUM 4.4 3.3 - 5.1 mmol/L [facility] CO2 26 21 - 35 mmol/L [facility] BUN 25(H) 6 - 19 mg/dL [facility] CREATININE 1.00 0.5 - 1.5 mg/dL [facility] GLUCOSE 102(H) 70 - 99 mg/dL [facility] CALCIUM 9.7 8.4 - 10.3 mg/dL [facility] EGFR 76 >59 mL/min/1.7 3m2 [facility] Comment:Estimated glomerular filtration rate calculated using the CKD-EPI refit equation. ANION GAP 12 10 - 20 mmol/L [facility] Blood 03/03/2024 10:2 7 AM EST 03/03/2024 10:31 AM EST us Flex Henderson MD LAB BLOOD ORDERABLES Final Result Performing Organization Address City/[facility]/ZIP Co de Phone Number [address] [address] * TSH (06/06/2021 10:34 AM EDT) TSH 0.42 0.27 - 4.20 uIU/mL [facility] Blood 06/06/2021 10:3 4 AM EDT 06/06/2021 10:38 AM EDT us Steve Pearza MD LAB BLOOD ORDERABLES Fi nal Result Performing Organization Address [facility] Co de Phone Number [address] [address] from Last 3 Months or Most Recently Relevant to Health Maintenance Insurance MEDICARE PART A & B [employer] MEDEX SUPPLEMENT MEDICARE PART A & B [employer] MEDEX SUPPLEMENT MEDICARE PART A & B [employer] MEDEX SUPPLEMENT MEDICARE PART A & B [employer] MEDEX SUPPLEMENT MEDICARE PART A & B [employer]OSS MEDEX SUPPLEMENT MEDICARE PART A & B [employer] CROSS MEDEX SUPPLEMENT MEDICARE PART A & B [employer] CROSS MEDEX SUPPLEMENT MEDICARE PART A & B [employer] CROSS MEDEX SUPPLEMENT MEDICARE PART A & B [employer] MEDEX SUPPLEMENT Advance Directives For more information, please contact: [phone] (9AM - 5PM [facility], Thursday-Thursday) Documents on File Type Date Recorded Patient Telemarketer Expl anation Healthcare Proxy 12/11/2021 health care proxy Healthcare Agents on File Name Relationship Healthcare Agent Relationship Communication Deloris Yin Spouse .Primary Health Care Agent (Proxy form on file) Kb Yin Child Alternate Health care Agent (Proxy form on file) [email or web address] Fayebritni Yin Child Alternate Health care Agent (Proxy form on file) Care Teams Shell Shop Supervisor Relationship Specialty Start Date End Date Laura Fernandes MD [address] [place] [address] [place] [phone] PCP - General Family Medicine 12/11/21 Jed Chaves DO [address] [place] [address] [email or web address] Hematology and Oncology 04/24/17 Serene Finch FNP [address] [place] [address] [email or web address] Nurse Practitioner Hematology and Oncology 06/08/20 Additional Source Comments The information contained in this document represents components of the legal health record. It is not the complete legal health record.[facility]
--- OUTSIDE RECORDS SUMMARY | 2024-11-02 14:09 | XMS_ITS | Encounter Summary ---
Author Organization [facility] Address [address] [facility] [address] [place] [address] Phone Care Team Providers Care Trauma Doctor Name Role Phone Basim Plummer MD Primary Care Provider [phone] Jed Chaves DO Unavailable [phone] Priti Roberson Primary Care Provider [phone] Serene Finch PROFESSOR OF HISTORY Unavailable [phone] Laura Fernandes MD Primary Care Provider [phone] Encounter Details Date Type Department Care Team (Late st Contact Info) Description 06/03/2018 Procedure Pass [facility] [address] [place], [place] [id number] Social History Tobacco Use Types Packs/Day Years [...] Description 11/08/2024 9:45 AM EDT Office Visit [address] [address] Laura Fernandes MD [address] [place] [address] [email or web address] La Whelan, PT [address] [place] [address] 11/15/2024 9:45 AM EDT Office Visit [address] [address] Laura Fernandes MD [address] [place] [address] [email or web address] La Whelan, PT [address] [place] [address] 11/22/2024 9:45 AM EDT Office Visit [address] [address] Laura Fernandes MD [address] [place] [address] [email or web address] La Whelan, PT [address] [place] [address] 11/29/2024 9:45 AM EDT Office Visit [address] [address] Laura Fernandes MD [address] [place] [address] TipLa, PT [address] [place] [address] 12/06/2024 9:45 AM EDT Office Visit [facility] [address] [place] [address] Laura Fernandes MD [address] [place] [address] TipLa, PT [address] [place] [address] 12/16/2024 11:00 AM EST Office Visit [facility] [address] [place] [address] Jed Chaves DO [address] [place] [address] [email or web address] documented as of this encounter Visit Diagnoses Not on filedocumented in this encounter Care Teams Trauma Doctor Relationship Specialty Start Date End Date Basim Plummer MD [email or web address] PCP - General 11/27/16 04/21/19 Priti Roberson PA [address] [place] [address] PCP - General Unknown Provider Specialty 04/22/19 12/10/21 Laura Fernandes MD [address] [place] [address] [place] [phone] PCP - General Family Medicine 12/11/21 Jed Chaves DO [address] [place] [address] [email or web address] Hematology and Oncology 04/24/17 Serene Finch FNP [address] [place] [address] [email or web address] Nurse Practitioner Hematology and Oncology 06/08/20 documented as of this encounter Additional Source Comments The information contained in this document represents components of the legal health record. It is not the complete legal health record.[facility]
--- OUTSIDE RECORDS SUMMARY | 2024-11-02 14:09 | XMS_ITS | Encounter Summary ---
Author Organization [facility] Address [address] [facility] [place] [place] [address] [place] [address] Phone Care Team Providers Care Security Attendant Name Role Phone Basim Plummer MD Primary Care Provider [phone] Jed Chaves DO Unavailable [phone] Priti Roberson Primary Care Provider [phone] Serene Finch [employer] SALESPERSON Unavailable [phone] Laura Fernandes MD Primary Care Provider [phone] Encounter Details Date Type Department Care Team (Late st Contact Info) Description 03/07/2019 Procedure Pass [address] [place] [address] Social History Tobacco Use Types Packs/Day Years [...] on file documented as of this encounter Last Filed Vital Signs Vital Sign Reading Time Taken Comments Blood Pressure - - Pulse - - Temperature - - Respiratory Rate - - Oxygen Saturation - - Inhaled Oxygen Concentration - - Weight 86.2 kg (190 lb) 03/08/2019 10:39 AM EST Height 180.3 cm (5' 11 ) 03/08/2019 10:39 AM EST Body Mass Index 26.5 03/08/2019 10:39 AM EST documented in this encounter Plan of Treatment Upcoming Encounters Date Type Department Care Team (Late st Contact Info) Description 11/08/2024 9:45 AM EDT Office Visit [address] [address] Laura Fernandes MD [address] [place] [address] La Whelan, PT [address] [place] [address] 11/15/2024 9:45 AM EDT Office Visit [address] [address] Laura Fernandes MD [address] [place], [place] [phone] La Whelan, PT [address] [place] [address] 11/22/2024 9:45 AM EDT Office Visit [address] [address] Laura Fernandes MD [address] [place] [address] La Whelan, PT [address] [place] [address] 11/29/2024 9:45 AM EDT Office Visit [address] [address] Laura Fernandes MD [address] [place] [address] La Whelan, PT [address] [place] [address] 12/06/2024 9:45 AM EDT Office Visit [address] [address] Laura Fernandes MD [address] [place] [address] La Whelan, PT [address] [place] [address] 12/16/2024 11:00 AM EST Office Visit [facility] 30 [place] [address] Jed Chaves DO [address] [place] [address] [email or web address] documented as of this encounter Visit Diagnoses Not on filedocumented in this encounter Care Teams Security Attendant Relationship Specialty Start Date End Date Basim Plummer MD [email or web address] PCP - General 11/27/16 04/21/19 Priti Roberson PA [address] [place] [address] PCP - General Unknown Provider Specialty 04/22/19 12/10/21 Laura Fernandes MD [address] [place] [address] [place] [address] PCP - General Family Medicine 12/11/21 Jed Chaves DO [address] [place] [address] [email or web address] Hematology and Oncology 04/24/17 Serene Finch FNP [address] [place] [address] [phone] [email or web address] Nurse Practitioner Hematology and Oncology 06/08/20 documented as of this encounter Additional Source Comments The information contained in this document represents components of the legal health record. It is not the complete legal health record.[facility]
--- OUTSIDE RECORDS SUMMARY | 2024-11-02 14:09 | XMS_ITS | Encounter Summary ---
Author Organization [facility] Address 399 [facility] [address] [place] [address] Phone Care Team Providers Care Electrician Refinery Name Role Phone Basim Plummer MD Primary Care Provider [phone] Jed Chaves DO Unavailable [phone] Priti Roberson Primary Care Provider [phone] Serene Finch LUBE WORKER Unavailable [phone] Laura Fernandes MD Primary Care Provider [phone] Reason for Referral * Outpatient Procedure - Closed Specialty Diagnoses / Procedures Referred By Birgit skinner Referred To Contact Diagnoses Persistent atrial fibrillation Procedures MCT (Mobile Cardiac Telemetry) Js Moe DO Phone: tel: fax: [email or web address] Referral ID Status Reason Start Date Expiration Date Visits Re quested Visits Authorized [id number] Closed 05/13/2018 05/13/2019 1 1 Encounter Details Date Type Department Care Team (Latest Contact Info) Description 05/13/2018 Ancillary [facility] [address] [facility] 3rd Floor, [address] [place] [address] Js Moe DO 22 [facility] [address] [place] [address] [email or web address] Persistent atrial fibrillation Social History Tobacco Use Types Packs/Day Years Used Date Smoking Tobacco: Never Smokeless Tobacco: Never Alcohol Use Standard Drinks/Week Comments Yes 1 (1 standard drink = 0.6 oz pur [...] Description 11/08/2024 9:45 AM EDT Office Visit [address] [address] Laura Fernandes MD [address] [place] [address] La Whelan, PT [address] [place] [address] 11/15/2024 9:45 AM EDT Office Visit [address] [address] Laura Fernandes MD [address] [place] [address] La Whelan, PT [address] [place] [address] 11/22/2024 9:45 AM EDT Office Visit [facility] [address] [place] [address] Laura Fernandes MD [address] [place] [address] La Whelan, PT [address] [place] [address] 11/29/2024 9:45 AM EDT Office Visit [address] [address] Laura Fernandes MD [address] [place] [address] La Whelan, PT [address] [place] [address] 12/06/2024 9:45 AM EDT Office Visit [address] [address] Laura Fernandes MD [address] [place] [address] La Whelan, PT [address] [place] [address] 12/16/2024 11:00 AM EST Office Visit [facility] at [address] [address] Jed Chaves DO [address] [place] [address] [email or web address] Pending Results Name Type Priority Associated Diagnoses Date /Time MCT (Mobile Cardiac Telemetry) Cardiac Monitors Routine Persistent atrial fibrillation 05/13/2018 10:07 AM EDT Scheduled Orders Name Type Priority Associated Diagnoses Orde r Schedule MCT (Mobile Cardiac Telemetry) Cardiac Monitors Routine Persistent atrial fibrillation Expected: 03/17/2018, Expires: 03/10/2019 documented as of this encounter Visit Diagnoses Diagnosis Persistent atrial fibrillation Atrial fibrillation documented in this encounter Care Teams Electrician Refinery Relationship Specialty Start Date End Date Basim Plummer MD [email or web address] PCP - General 11/27/16 04/21/19 Priti Roberson PA [address] [place] [address] PCP - General Unknown Provider Specialty 04/22/19 12/10/21 Laura Fernandes MD [address] [place] [address] [place] [address] PCP - General Family Medicine 12/11/21 Jed Chaves DO [address] [place] [address] [email or web address] Hematology and Oncology 04/24/17 Serene Finch FNP [address] [place] [address] [email or web address] Nurse Practitioner Hematology and Oncology 06/08/20 documented as of this encounter Additional Source Comments The information contained in this document represents components of the legal health record. It is not the complete legal health record.[facility]
--- OUTSIDE RECORDS SUMMARY | 2024-11-02 14:09 | XMS_ITS | Encounter Summary ---
Author Organization [facility] Address 399 [facility] [address] [place] [address] Phone Care Team Providers Care High School Admissions Representative Name Role Phone Andie Jed Bonilla DO Unavailable [phone] Priti Roberson Primary Care Provider [phone] Serene Finch BEAM SEALER Unavailable [phone] Laura Fernandes MD Primary Care Provider [phone] Reason for Referral * Physical Therapy (Routine) - Closed Specialty Diagnoses / Procedures Referred By Birgit skinner Referred To Contact Physical Therapy Diagnoses Encounter for rehabilitation R26.89 Other abnormalities of gait and mobility; unsteady when walking Procedures Evaluate & Treat Priti Roberson PA Phone: tel: fax: [facility] [address] [place] [address] Phone: tel: Referral ID Status Reason Start Date Expiration Date Visits Re quested Visits Authorized [id number] Closed 11/26/2020 02/08/2021 99 99 Encounter Details Date Type Department Care Team (Latest Contact Info) Description 10/04/2020 Transcribe Orders [facility] [address] [place] [address] Priti Roberson PA [facility] [address] [address] Encounter for rehabilitation (Primary Dx) Social History Tobacco Use Types [...] Description 11/08/2024 9:45 AM EDT Office Visit [address] [address] Laura Fernandes MD [address] [place] [address] La Whelan, PT [address] [place] [address] 11/15/2024 9:45 AM EDT Office Visit [address] [address] Laura Fernandes MD [address] [place] [address] La Whelan, PT [address] [place] [address] 11/22/2024 9:45 AM EDT Office Visit [address] [address] Laura Fernandes MD [address] [place] [address] La Whelan, PT [address] [place] [address] 11/29/2024 9:45 AM EDT Office Visit [address] [address] Laura Fernandes MD [address] [place] [address] La Whelan, PT [address] [place] [address] 12/06/2024 9:45 AM EDT Office Visit [address] [address] Laura Fernandes MD [address] [place] [address] La Whelan, PT [address] [place] [address] 12/16/2024 11:00 AM EST Office Visit [facility] at [address] [address] Jed Chaves DO [address] [place] [address] [email or web address] documented as of this encounter Procedures Procedure Name Priority Date/Time Associated Diagnosis Comments AMB REFERRAL TO [facility] PHYSICAL THERAPY Routine 11/26/2020 3:03 PM EDT Encounter for rehabilitation documented in this encounter Results * Ambulatory referral to [facility] Physical Therapy (11/26/2020 3:03 PM EDT) Other Priti HARVEY AMB [facility] REFERRALS Final Res ult documented in this encounter Visit Diagnoses Diagnosis Encounter for rehabilitation- Primary documented in this encounter Care Teams High School Admissions Representative Relationship Specialty Start Date End Date Priti Roberson PA [address] [place] [address] PCP - General Unknown Provider Specialty 04/22/19 12/10/21 Laura Fernandes MD [address] [place] [address] [place] [address] PCP - General Family Medicine 12/11/21 Jed Chaves DO [address] [place] [address] [email or web address] DU Hematology and Oncology 04/24/17 Serene Finch FNP [address] [place] [address] [email or web address] Nurse Practitioner Hematology and Oncology 06/08/20 documented as of this encounter Additional Source Comments The information contained in this document represents components of the legal health record. It is not the complete legal health record.[facility]
--- OUTSIDE RECORDS SUMMARY | 2024-11-02 14:09 | XMS_ITS | Data Portability ---
Author Organization Formerly [facility] [employer], [employer] Address [address] [place] [address] Care Team Providers Care Block Breaker Operator Name Role Phone RUBENS NAILS Primary Care Provider [phone] RUBENS NAILS Referring Provider JED NOVOA OTHER ALYSSA MADDOX Primary Care Provider [facility] OTHER Assessment Encounter Date Assessment Date Assessment LastModified by Organization Details LastModified Time 01/10/2021 01/10/2021 IMPRESSION: C oncern for myelopathy causing feeling of weakness standing from sitting position D rooling, lightheadedness episodes upon standing up or while standing. T iredness context atrial fibrillation and sleep apnea. 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 Kera Burton: The cervical [...] 10, 2021 Followup as needed as detailed above i n particular if you wish to concentrate on further addressing parkinsonism, although likely not Parkinson's disease, that might relate to many of your symptoms discussed in November 2020 CC Andie Adkins Hamatology/Oncolog y mrossen Not available 01/10/2021 [...] and diagnosis of dehydration COntext 2020 presentation: C oncern for myelopathy causing feeling of weakness standing from sitting position D rooling, lightheadedness episodes upon standing up or while standing. 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 PLAN Marilu Yin January 07, 2022 Physical therapy for Slowly worsening imbalance, now with stumbling although no falling, separate from lightheadedness that also affects balance, mild nonspecific parkinsonism, with hip flexor weakness A referral has been sent to this physical therapy office. However, you have to make an initial phone call, to the number below, to set up the initial appointment. [facility] [address] [place] [address] Follow-up with your primary care provider at your earliest convenience to discuss starting a high intensity statin medication which is standard of care if you have ever had a stroke before, even a silent stroke, which is what you have apparently had seen on imaging this summer at [facility] emergency room. Follow-up 3 months ANNA Adkins Hamatology/Oncolog reed stephen Not available 01/07/2022 12:59:17 04/03/2022 04/03/2022 IMPRESSION: --Slowly worsening gait imbalance, now with stumbling although not falling -- Continued lightheadedness episodes, starting with standing up or walking, including one with diagnosis of dehydration at emergency room in summer 2021 --Patient report of rectal cold] stroke seen on head CT during presentation summer 2021 with significant lightheadedness and diagnosis of dehydration context 2020 presentation: C oncern for myelopathy causing feeling of weakness standing from sitting position D rooling, lightheadedness episodes upon standing up or while standing. 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 T iredness context atrial fibrillation and sleep [...] are agreeable with Follow-up as needed ANNA Andie Jed Hematology/Oncolog y zafar Not available 04/03/2022 11:04:22 10/29/2022 10/29/2022 IMPRESSION: --Slowly worsening gait imbalance, now with stumbling although not falling -- Continued lightheadedness episodes, starting with standing up or walking, including one with diagnosis of dehydration at emergency room in summer 2021 --Patient report of old stroke seen on head CT during presentation summer 2021 with significant lightheadedness and diagnosis of dehydration context 2020 presentation: C oncern for myelopathy causing feeling of weakness standing from sitting position D rooling, lightheadedness episodes upon standing up or while standing. 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 Lab None recorded. Referral neurologic physical therapist referral - Slowly worsening imbalance, now with stumbling although no falling, separate from lightheaded ness that also affects balance, mild nonspecific parkinsonis m, with hip flexor weakness 2021 022 [facility] [address] [place], [address], 3 15:32:50 Procedures None recorded. Surgeries None recorded. Imaging None recorded. Medication Orders carbidopa 25 mg-levodopa 100 mg tablet 2022 023 [facility], [address] [place], [address], 13:25:02 Patient TargetsNo targets recorded. Patient Instructions [...] minutes mrossen Not available 04/03/2022 11:04:26 10/29/2022 [id number] PREVIOUS DISCUSSIONS _ >>>>>>>April 03, 2022 OLD [...] minutes zafar Not available 10/29/2022 13:23:43 02/24/2023 [id number] PREVIOUS DISCUSSIONS _ >>>>>>>April 03, 2022 OLD [...] greater than 40 minutes zafar Not available 02/24/2023 12:34:05 Reason for Referral [...] , w/o contr ast [facility] Access ion Number : [id number] Patien t Name: Caridad Yin Record Number : [id number] Date of : 1940 Date of Exam: 2020 Referr ing Physic braxton: Marbella Anderson MD Neurol [facility] [address] [facility] - [address] [address] Exam: MR Cervic al Spine (C-) CPT 01863 Room Descri ption: [facility] Verio 3.0T INDICA TION: Concer n for [...] noted. Alignm ent is otherw ise preser elfego. Verteb ral body height s are mainta [...] a arnaud ioma. There is also a arnaud ioma versus focal fatty change in the right aspect of the C6 verteb ral body. No suspic ious marrow signal abnorm ality is seen. The visual ized audio video technician ior fossa and cervic omedul hal juncti on are normal . Cord signal and contou r is normal throug hout. An oval node measur ing 7 mm in short axis is seen audio video technician ior and latera l to the right [...] nal narrow ing. C6-C7: Mild broad- based audio video technician ior disc osteop hyte comple x and [...] ly Signed By: Willow Burton MD [email or web address] [facility] [address], [place], [address], 12/20/2020 13:13:21 01/08/20 21 01/06/2021 MRI, thora cic spine , w/o contr ast [facility] Access ion Number : [id number] Martha skinner Name: Caridad Yin Record Number : [id number] Date of : 1940 Date of Exam: 2020 Referr ing Physic braxton: Marbella Anderson MD Neurol [facility] [address] [facility] - [address] [place] [address] Exam: MR Thorac ic Spine (C-) CPT 66986 Room Descri ption: [facility] Verio 3.0T INDICA TION: Interv ertebr al [...] and mildly narrow ed. Multil evel tiny audio video technician ior disc bulges are presen t, includ [...] tion. Electr onical ly Signed By: Willow stephen [facility] ([facility]) [address], [place], [address], 01/08/2021 21:51:05 Result Notes None recorded. Procedures Surgical History Date Name Laterality Status Provider Name and Address Organization Details Recorded Time 02/24/2023 DATA REVIEW completed Robert Anderson MD [address] [place] [address] [place], [address], [facility] 02/24/2023 12:34:05 10/29/2022 DATA REVIEW completed Robert Anderson MD [address] [place], [place] [address], [address], [facility] 10/29/2022 12:47:31 04/03/2022 DATA REVIEW completed Robert Anderson MD [address] [place], [place] [address], [address], [facility] [employer] [facility] 04/03/2022 10:41:52 01/07/2022 DATA REVIEW completed Robert Anderson MD [address] [place], [place] [address], [address], [facility] [employer] [facility] 01/07/2022 12:14:14 Imaging Results None recorded. Procedure Notes None recorded. 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 50271198 M51.04 3014 Robert Anderson MD [address] [place] [address] 01/10/2021 14:24:17 01/14/2021 09:10:39 Abnormal gait 55611799 R26.81 Essential tremor 4244802 09 G25.0 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 06107540 M51.04 7170 Robert Anderson MD [address] [place] [address] 01/07/2022 11:37:21 01/07/2022 14:25:26 Abnormal gait 52815243 R26.81 Essential tremor 8466605 09 G25.0 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 65742695 M51.04 7929 Robert Anderson MD [address] [place] [address] 04/03/2022 10:27:45 04/03/2022 11:19:57 Abnormal gait 88871253 R26.81 Essential tremor 3204797 09 G25.0 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 63965996 M51.04 [id number] Robert Anderson MD [address] [place] [address] 10/29/2022 12:15:02 10/29/2022 17:01:26 Abnormal gait 58368268 R26.81 Essential tremor 2815091 09 G25.0 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 57331820 M51.04 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.3 46027 Robert Anderson MD [facility] [address] [place] [address] [place] [address] 02/24/2023 12:28:21 02/24/2023 17:11:50 Abnormal gait 35402287 R26.81 Essential tremor 8921813 09 G25.0 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 09651433 M51.04 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 3051910 G21.4 Multiple s ystem atrophy 949554027 G90.3 Health Concerns Section Related Observation LastModified by Organization Detai ls LastModified Time None Recorded Concern Status LastModified by Organization Details LastModified Time None Recorded Advance Directives Directive None Recorded Payers Insurance Date Sequence Insurance Name Policy Number Policy Nieto Covered Member ID Nieto Member ID Guarantor Name 02/21/2023 1 [place] [employer] Caridad Yin [id number] Caridad Yin 02/27/2023 2 [place] [id number] Caridad Yin [id number] Caridad Yin Notes Date Note Type [...] particular problem with memory. Robert Anderson MD [address] [place] [address] [place], [address], [facility] 01/10/2021 15:35:11 01/07/2022 text/html He [...] particular problem with memory. Robert Anderson MD [address] [place] [address], [phone], [facility] 01/07/2022 12:59:45 04/03/2022 text/html Neuology [...] and is continuing physical therapy with Meli Vaqzuez at [facility]. It has helped a little with his imbalance. He is stumbling less the stumbles are more mild, on the small side. They still happen multiple times per day. mentions they tend to happen if he tripped on something, a rug on particular. She then herself volunteers that a practical solution would be to take up the rugs that are not the [id number]-cu-nqzc part of the carpeting and there home. [...] particular problem with memory. Robert Anderson MD [address] [place] [address], [address], [facility] 04/03/2022 11:05:35 10/29/2022 text/html Neuology [...] little more forgetful. 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 There is no worsening of bowel control. She has no problems dressing himself except it is harder to bend over to put on his shoes. He has no problems turning in bed. He has no problems with coordination of his upper extremities.I did not ask about mood I will ask at follow-up. >>>>>>>>>>>>>>>>>>>>> >>>>>April 03, 2022Since January 07, 2022 neurology follow-up encounter, he has started and is continuing physical therapy with Meli Vazquez at [facility]. It has helped a little with his imbalance. He is stumbling less the stumbles are more mild, on the small side. They still happen multiple times per day. mentions they tend to happen if he tripped on something, a rug on particular. She then herself volunteers that a practical solution would be to take up the rugs that are not the oato-ob-edcp part of the carpeting and there home. [...] particular problem with memory. Robert Anderson MD [address] [place] [address] [place], [address], [facility] 10/29/2022 13:25:05 02/24/2023 text/html Neuology [...] diagnosed ~2018. He is accompanied by his son Manuel, [...] little more forgetful. 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 There is no worsening of bowel control. She has no problems dressing himself except it is harder to bend over to put on his shoes. He has no problems turning in bed. He has no problems with coordination of his upper extremities.I did not ask about mood I will ask at follow-up. >>>>>>>>>>>>>>>>>>>>> >>>>>April 03, 2022Since January 07, 2022 neurology follow-up encounter, he has started and is continuing physical therapy with Meli Vazquez at [facility]. It has helped a little with his imbalance. He is stumbling less the stumbles are more mild, on the small side. They still happen multiple times per day. mentions they tend to happen if he tripped on something, a rug on particular. She then herself volunteers that a practical solution would be to take up the rugs that are not the cebp-ba-dack part of the carpeting and there home. [...] particular problem with memory. Robert Anderson MD [address] [place] [address] [place], [address], [facility] 02/24/2023 13:21:29
--- OUTSIDE RECORDS SUMMARY | 2024-11-02 14:09 | XMS_ITS | Encounter Summary ---
Author Organization [facility] Address [address] [facility] [address] [place] [address] Phone Care Team Providers Care Wire Coater Name Role Phone Basim Plummer MD Primary Care Provider [phone] Jed Chaves DO Unavailable [phone] Priti Roberson Primary Care Provider [phone] Serene Finch PREPARATION CENTER COORDINATOR Unavailable [phone] Laura Fernandes MD Primary Care Provider [phone] Reason for Referral * MRI/CAT Scan - Closed Specialty Diagnoses / Procedures Referred By Birgit skinner Referred To Contact Radiology Diagnoses Neoplasm of uncertain behavior of kidney, unspecified laterality Procedures MRI Abdomen Bradley Nicole MD Phone: tel: fax: [email or web address] Referral ID Status Reason Start Date Expiration Date Visits Re quested Visits Authorized [id number] Closed 03/07/2019 03/06/2020 1 1 Encounter Details Date Type Department Care Team (Late st Contact Info) Description 03/07/2019 Ancillary Orders Virtual Department [address] [place] [address] Bradley Nicole MD [address] [place] [address], [address] [address] Neoplasm of uncertain behavior of kidney, unspecified laterality Social History Tobacco Use Types Packs/Day Years [...] Description 11/08/2024 9:45 AM EDT Office Visit [address] [address] Laura Fernandes MD [address] [place] [address] La Whelan, PT [address] [place] [address] 11/15/2024 9:45 AM EDT Office Visit [address] [address] Laura Fernandes MD [address] [place] [address] La Whelan, PT [address] [place] [address] 11/22/2024 9:45 AM EDT Office Visit [facility] [address] [place] [address] Laura Fernandes MD [address] [place] [address] La Whelan, PT [address] [place] [address] 11/29/2024 9:45 AM EDT Office Visit [facility] [address] [place] [address] Laura Fernandes MD [address] [place] [address] La Whelan, PT [address] [place] [address] 12/06/2024 9:45 AM EDT Office Visit [address] [address] Laura Fernandes MD [address] [place] [address] La Whelan, PT [address] [place] [address] 12/16/2024 11:00 AM EST Office Visit [facility] at [address] [address] Jed Chaves DO [address] [place] [address] [email or web address] documented as of this encounter Results * MRI ABDOMEN WITH AND WITHOUT CONTRAST (03/09/2019 3:09 PM EST) Anatomical Region Laterality Modality Abdomen Magnetic Resonan ce 03/09/2019 4:23 PM EST Impressions 03/09/2019 5:08 PM EST 1. No suspicious enhancing renal masses. 2. Bilateral renal cortical cysts. The lesion described on the prior CT appears to represent a 1.2 x 1.3 cm cyst with a thin septation. 3. Borderline enlarged retroperitoneal lymph nodes. POS [id number] Narrative 03/09/2019 5:08 PM EST EXAM: MRI ABDOMEN WITH AND WITHOUT CONTRAST HISTORY: Neoplasm of uncertain behavior of kidney, unspecified laterality COMPARISON: 02/24/2019 CT. TECHNIQUE: Multiplanar multisequence MR imaging of the abdomen without and with contrast, standard renal protocol. Dynamic postcontrast imaging with subtraction images. IV contrast: 17 mL Dotarem. FINDINGS: Kidneys: RIGHT kidney: Nonenhancing T2 bright T1 hypointense simple cysts measure 2.1 cm and 1.2 cm arising from the lateral cortex. No hydronephrosis, perinephric fluid or enhancing solid mass. LEFT kidney: There are several tiny 2-4 mm nonenhancing peripheral cortical cysts. Within the lateral cortex mid to lower pole there is a 1.2 x 1.3 cm T2 bright T1 hypointense nonenhancing cyst with a thin faintly perceptible smooth septation. No suspicious solid enhancing mass. No hydronephrosis. OTHER FINDINGS: A few tiny T2 bright cysts are seen within the imaged portion of the liver. Normal size of the spleen. Normal vascular enhancement. No abdominal ascites. A few borderline enlarged retroperitoneal lymph nodes. The gallbladder and biliary tree are within normal limits. No biliary ductal dilatation. 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 Procedure Note Yeimy Glez MD - 03/09/2019 EXAM: MRI ABDOMEN WITH AND WITHOUT CONTRAST HISTORY: Neoplasm of uncertain behavior of kidney, unspecified laterality COMPARISON: 02/24/2019 CT. TECHNIQUE: Multiplanar multisequence MR imaging of the abdomen without andwith contrast, standard renal protocol. Dynamic postcontrast imaging withsubtraction images. IV contrast: 17 mL Dotarem. FINDINGS: Kidneys: RIGHT kidney: Nonenhancing T2 bright T1 hypointense simple cysts measure2.1 cm and 1.2 cm arising from the lateral cortex. No hydronephrosis,perinephric fluid or enhancing solid mass. LEFT kidney: There are several tiny 2-4 mm nonenhancing peripheralcortical cysts. Within the lateral cortex mid to lower pole there is a 1.2x 1.3 cm T2 bright T1 hypointense nonenhancing cyst with a thin faintlyperceptible smooth septation. No suspicious solid enhancing mass. Nohydronephrosis. OTHER FINDINGS: A few tiny T2 bright cysts are seen within the imagedportion of the liver. Normal size of the spleen. Normal vascularenhancement. No abdominal ascites. A few borderline enlargedretroperitoneal lymph nodes. The gallbladder and biliary tree are withinnormal limits. No biliary ductal dilatation. There is a 1.2 cm lipid richadenoma. IMPRESSION: 1. No suspicious enhancing renal masses. 2. Bilateral renal cortical cysts. The lesion described on the prior CTappears to represent a 1.2 x 1.3 cm cyst with a thin septation. 3. Borderline enlarged retroperitoneal lymph nodes. 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 04/24/17 Serene Finch FNP [address] [place] [address] [email or web address] Nurse Practitioner Hematology and Oncology 06/08/20 documented as of this encounter Additional Source Comments The information contained in this document represents components of the legal health record. It is not the complete legal health record.[facility]
== END 2024-11-02 11:33 | disposition home or self-care (01) ==
LOC: HO.HSMS 10:58
PROVIDERS: PCP Family Medicine; Visit Provider Psychiatry & Neurology Neurology
DX: G20.A1 Parkinson'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 dyskinesia, without mention of fluctuations (principal); R68.89 Other general symptoms and signs
CPT/HCPCS: 99214; G2211

== ENCOUNTER → 2024-11-02 10:58 | Outpatient (BNVA) | payer MEDICARE, SELFPAY | PROVIDERS: PCP Family Medicine; Visit Provider Psychiatry & Neurology Neurology | DX: G20.A1 Parkinson'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 dyskinesia, without mention of fluctuations (principal); R68.89 Other general symptoms and signs; G47.33 Obstructive sleep apnea (adult) (pediatric); Z99.89 Dependence on other enabling machines and devices | CPT/HCPCS: 99212 ==